=== PATIENT | female | born 1985 | race Caucasian/White ===

== ENCOUNTER 2017-03-08 09:13 | Inpatient (IN) | payer OTHER ==
[2017-03-08 09:47] VITALS: BMI 21.7
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
[2017-03-08] MEDS ORDERED: MAGNESIUM CITRATE 300 ML BOTTLE PO PRN (14:08)
[2017-03-08] MEDS ORDERED: MENTHOL/PHENOL 1 EACH UD MM PRN (14:08)
[2017-03-08] MEDS ORDERED: MAGNESIUM HYDROX 2400MG/30ML ORAL SUSPENSION 30 ML CUP PO PRN (14:08)
[2017-03-08] MEDS ORDERED: guaiFENesin/D-METHORPHAN HB 10 ML UNIT-DOSE CUPS PO PRN (14:08)
[2017-03-08] MEDS ORDERED: hydrOXYzine PAMOATE 50 MG CAPSULE (FP) PO PRN (14:08)
[2017-03-08] MEDS ORDERED: MAG HYDROX/AL HYDROX/SIMETH 30 ML UNIT-DOSE CUP PO PRN (14:08)
[2017-03-08] MEDS ORDERED: diphenhydrAMINE HCL 50 MG CAPSULE PO PRN (14:08)
[2017-03-08] MEDS ORDERED: P-EPHED 60MG/TRIPROLIDI 2.5MG TABLET PO PRN (14:08)
[2017-03-08] MEDS ORDERED: ALBUTEROL SO4 6.7 GM HFA INHALER IH PRN (14:12)
[2017-03-08] MEDS ORDERED: SUMAtriptan SUCCINATE 25 MG TABLET PO PRN (15:00)
[2017-03-08] MEDS ORDERED: METHADONE HCL 10 MG TABLET (FOR DETOX USE ONLY) PO ONE ×2 (15:00→23:00)
[2017-03-08] MEDS: GABAPENTIN 300 MG CAPSULE (FP) PO SCH ×2 (15:06→22:11)
[2017-03-08] MEDS: PHENobarbital 30 MG TABLET PO SCH ×3 (15:06→23:53)
[2017-03-08] MEDS: NICOTINE 21 MG/24 HOURS TOPICAL PATCH TD SCH (15:07)
[2017-03-08 18:34] LABS: URINE APPEARANCE SLCLOUDY; URINE BILIRUBIN NEGATIVE (NEGATIVE); URINE BLOOD NEGATIVE (NEGATIVE); URINE COLOR LTYELLOW; URINE GLUCOSE (UA) NEGATIVE (NEGATIVE); URINE KETONE NEGATIVE (NEGATIVE); URINE LEUK ESTERASE NEGATIVE (NEGATIVE); URINE NITRITE NEGATIVE (NEGATIVE); URINE PROTEIN NEGATIVE (NEGATIVE); URINE UROBILINOGEN NEGATIVE mg/dL (0.2-1.0)
[2017-03-08] MEDS: diazePAM 5 MG TABLET PO PRN (19:18)
[2017-03-08] MEDS: NICOTINE POLACRILEX 2 MG GUM BC PRN (19:42)
[2017-03-08] MEDS ORDERED: ONDANSETRON *ODT* 4 MG TABLET SL ONE (21:32)
[2017-03-08] MEDS: levETIRAcetam 500 MG TABLET (FP) PO SCH (22:10)
[2017-03-08] MEDS: THIAMINE HCL 100 MG TABLET (FP) PO SCH (22:11)
[2017-03-09] MEDS: GABAPENTIN 300 MG CAPSULE (FP) PO SCH ×3 (05:31→22:03)
[2017-03-09] MEDS: PHENobarbital 30 MG TABLET PO SCH ×4 (05:31→23:02)
[2017-03-09] MEDS ORDERED: METHADONE HCL 10 MG TABLET (FOR DETOX USE ONLY) PO ONE (10:00)
[2017-03-09 10:11] LABS: MCH 27.2 pg (25.7-33.7); MCHC 32.5 g/dl (32.0-36.0); MEAN CELL VOLUME 83.7 fl (80-96); MEAN PLT VOLUME 7.6 fl (7.5-11.1); PLATELET COUNT 314 K/MM3 (134-434); RDW 15.1 % (11.6-15.6)
[2017-03-09] MEDS: levETIRAcetam 500 MG TABLET (FP) PO SCH ×2 (10:31→22:05)
[2017-03-09] MEDS: PRENATAL VITAMINS W/ FOLIC ACID TABLET (FP) PO SCH (10:31)
[2017-03-09] MEDS: NICOTINE POLACRILEX 2 MG GUM BC PRN ×3 (10:33→18:33)
[2017-03-09] MEDS: NICOTINE 21 MG/24 HOURS TOPICAL PATCH TD SCH ×2 (10:59→14:31)
[2017-03-09 11:13] LABS: ALBUMIN 3.2 g/dl (3.4-5.0); ALK PHOS 65 U/L (45-117); ANION GAP 6 (8-16); BILIRUBIN,TOTAL 0.4 mg/dL (0.2-1.0); CALCIUM 8.8 mg/dL (8.5-10.1); CO2 32 mmol/L (21-32); CREATININE 0.7 mg/dL (0.55-1.02); GLUCOSE,RANDOM 79 mg/dL (74-106); SGOT/AST 10 U/L (15-37); SGPT/ALT 15 U/L (12-78); TOT PROT 6.7 g/dl (6.4-8.2)
--- NOTE | 2017-03-09 12:27 | PN ---
S COWS - Scale Resting Pulse: 1= [place] 81-100 Sweatin=Flushed/Facial Moisture Restless Observation: 1= Difficult to Sit Still Pupil Size: 0= Normal to Room Light Bone or Joint Aches: 2= Severe Diffuse Aches Runny Nose/ Eye Tearin= Nasal Congestion GI Upset > 30mins: 0= None Tremor Observation of Outstretched Hands: 2= Slight Tremor Visible Yawning Observation: 2= >3x During Session Anxiety or Irritability: 2=Irritable/Anxious Goose Flesh Skin: 3=Piloerection COWS Score: 16 BHS Progress Note (SOAP) Subjective: irritable agitation sweats interrupted sleep body aches Objective: 03/09/17 12:25 Vital Signs Temperature 98.2 F 03/09/17 11:16 Pulse Rate 90 03/09/17 11:16 Respiratory Rate 18 03/09/17 11:16 Blood Pressure 99/62 03/09/17 11:16 O2 Sat by Pulse Oximetry (%) Laboratory Tests 03/08/17 03/09/17 03/09/17 15:55 07:00 07:00 WBC 5.0 RBC 4.13 Hgb 11.2 Hct 34.5 MCV 83.7 MCH 27.2 MCHC 32.5 RDW 15.1 Plt Count 314 MPV 7.6 Sodium 141 Potassium 4.3 Chloride 103 Carbon Dioxide 32 Anion Gap 6 L BUN 12 Creatinine 0.7 Creat Clearance w eGFR > 60 Random Glucose 79 Calcium 8.8 Total Bilirubin 0.4 AST 10 L ALT 15 Alkaline Phosphatase 65 Total Protein 6.7 Albumin 3.2 L Urine Color Ltyellow Urine Appearance Slcloudy Urine pH 6.0 Ur Specific [place] 1.020 Urine Protein Negative Urine Glucose (UA) Negative Urine Ketones Negative Urine Blood Negative Urine Nitrite Negative Urine Bilirubin Negative Urine Urobilinogen Negative Ur Leukocyte Esterase Negative RPR Titer 03/09/17 07:00 WBC RBC Hgb Hct MCV MCH MCHC RDW Plt Count MPV Sodium Potassium Chloride Carbon Dioxide Anion Gap BUN Creatinine Creat Clearance w eGFR Random Glucose Calcium Total Bilirubin AST ALT Alkaline Phosphatase Total Protein Albumin Urine Color Urine Appearance Urine pH Ur Specific [place] Urine Protein Urine Glucose (UA) Urine Ketones Urine Blood Urine Nitrite Urine Bilirubin Urine Urobilinogen Ur Leukocyte Esterase RPR Titer Nonreactive awake/alert ambulating no acute distress Assessment: 03/09/17 12:26 withdrawal sx Plan: continue detox increase fluids
[2017-03-09] MEDS: diazePAM 5 MG TABLET PO PRN ×3 (13:10→22:04)
[2017-03-09] MEDS: LACOSAMIDE 50 MG TABLET PO SCH ×2 (14:28→22:05)
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
[2017-03-09] MEDS ORDERED: ONDANSETRON *ODT* 4 MG TABLET SL ONE (18:24)
--- NOTE | 2017-03-09 18:34 | EKG ---
Test Reason : Blood Pressure : / mmHG Vent. Rate : 084 BPM Atrial Rate : 084 BPM P-R Int : 182 ms QRS Dur : 096 ms QT Int : 392 ms P-R-T Axes : 056 089 050 degrees QTc Int : 463 ms NORMAL SINUS RHYTHM T WAVE INVERSIONS IN RIGHT PRECORDIAL LEADS PROLONGED QT ABNORMAL ECG NO PREVIOUS ECGS AVAILABLE REPEAT EKG IF CLINICALLY INDICATED Confirmed by OWEN MCRAE MD ([id number]) on 03/09/2017 6:33:45 PM Referred By: Confirmed By:OWEN MCRAE MD
[2017-03-09] MEDS ORDERED: QUEtiapine FUMARATE 100 MG TABLET (FP) PO SCH (22:00)
[2017-03-09] MEDS: THIAMINE HCL 100 MG TABLET (FP) PO SCH (22:03)
[2017-03-09] MEDS: QUEtiapine FUMARATE 100 MG TABLET (FP) PO SCH (22:04)
[2017-03-10] MEDS: PHENobarbital 30 MG TABLET PO SCH ×4 (06:21→23:50)
[2017-03-10] MEDS: GABAPENTIN 300 MG CAPSULE (FP) PO SCH ×3 (06:22→22:08)
[2017-03-10] MEDS ORDERED: METHADONE HCL 5 MG TABLET (FOR DETOX USE ONLY) PO ONE (10:00)
--- NOTE | 2017-03-10 10:14 | PN ---
S COWS - Scale Resting Pulse: 0= [place] 80 or Below Sweatin= Chills/Flushing Restless Observation: 0= Sits Still Pupil Size: 0= Normal to Room Light Bone or Joint Aches: 2= Severe Diffuse Aches Runny Nose/ Eye Tearin= Nasal Congestion GI Upset > 30mins: 0= None Tremor Observation of Outstretched Hands: 2= Slight Tremor Visible Yawning Observation: 2= >3x During Session Anxiety or Irritability: 2=Irritable/Anxious Goose Flesh Skin: 3=Piloerection COWS Score: 13 BHS Progress Note (SOAP) Subjective: sleepy sweats tired interrupted sleep Objective: 03/10/17 10:13 Vital Signs Temperature 97.8 F 03/10/17 05:58 Pulse Rate 77 03/10/17 05:58 Respiratory Rate 16 03/10/17 05:58 Blood Pressure 80/60 03/10/17 05:58 O2 Sat by Pulse Oximetry (%) Laboratory Tests 03/08/17 03/09/17 03/09/17 15:55 07:00 07:00 WBC 5.0 RBC 4.13 Hgb 11.2 Hct 34.5 MCV 83.7 MCH 27.2 MCHC 32.5 RDW 15.1 Plt Count 314 MPV 7.6 Sodium 141 Potassium 4.3 Chloride 103 Carbon Dioxide 32 Anion Gap 6 L BUN 12 Creatinine 0.7 Creat Clearance w eGFR > 60 Random Glucose 79 Calcium 8.8 Total Bilirubin 0.4 AST 10 L ALT 15 Alkaline Phosphatase 65 Total Protein 6.7 Albumin 3.2 L Urine Color Ltyellow Urine Appearance Slcloudy Urine pH 6.0 Ur Specific [place] 1.020 Urine Protein Negative Urine Glucose (UA) Negative Urine Ketones Negative Urine Blood Negative Urine Nitrite Negative Urine Bilirubin Negative Urine Urobilinogen Negative Ur Leukocyte Esterase Negative RPR Titer 03/09/17 07:00 WBC RBC Hgb Hct MCV MCH MCHC RDW Plt Count MPV Sodium Potassium Chloride Carbon Dioxide Anion Gap BUN Creatinine Creat Clearance w eGFR Random Glucose Calcium Total Bilirubin AST ALT Alkaline Phosphatase Total Protein Albumin Urine Color Urine Appearance Urine pH Ur Specific [place] Urine Protein Urine Glucose (UA) Urine Ketones Urine Blood Urine Nitrite Urine Bilirubin Urine Urobilinogen Ur Leukocyte Esterase RPR Titer Nonreactive awake/alert ambulating no acute distress Assessment: 03/10/17 10:14 withdrawal sx Plan: continue detox increase fluids
[2017-03-10] MEDS: levETIRAcetam 500 MG TABLET (FP) PO SCH ×2 (10:37→22:07)
[2017-03-10] MEDS: PRENATAL VITAMINS W/ FOLIC ACID TABLET (FP) PO SCH (10:37)
[2017-03-10] MEDS: LACOSAMIDE 50 MG TABLET PO SCH ×2 (10:37→22:08)
[2017-03-10] MEDS: NICOTINE 21 MG/24 HOURS TOPICAL PATCH TD SCH (10:39)
[2017-03-10] MEDS: LOPERAMIDE HCL 2 MG CAPSULE PO PRN ×2 (11:24→18:38)
[2017-03-10] MEDS: diazePAM 5 MG TABLET PO PRN ×3 (12:06→20:50)
[2017-03-10] MEDS: NICOTINE POLACRILEX 2 MG GUM BC PRN ×3 (12:06→18:38)
[2017-03-10] MEDS: THIAMINE HCL 100 MG TABLET (FP) PO SCH (22:07)
[2017-03-10] MEDS: QUEtiapine FUMARATE 100 MG TABLET (FP) PO SCH (22:08)
[2017-03-11] MEDS: PHENobarbital 30 MG TABLET PO SCH ×4 (07:19→23:15)
[2017-03-11] MEDS: GABAPENTIN 300 MG CAPSULE (FP) PO SCH ×3 (07:19→22:06)
--- NOTE | 2017-03-11 09:52 | PN ---
Psychiatric Progress Note Vital Signs: Vital Signs Period Temp Pulse Resp BP Sys/Bowman Pulse Ox Last 24 Hr 98 F-99.5 F 83-106 16-20 101-121/58-90 Date of Session: 03/11/17 Chief Complaint:: My meidcations HPI: Patient reports taking prior to admission: Wellbutrin XR 150mg poqd. Zoloft 25mg poqd Current Medications: Active Medications Generic Name Dose Route Start Last Admin Trade Name Freq PRN Reason Stop Dose Admin Acetaminophen 650 mg 03/08/17 14:08 Tylenol - PO Q4H PRN FEVER OR PAIN Al Hydroxide/Mg Hydroxide 30 ml 03/08/17 14:08 Mylanta Oral Suspension - PO Q6H PRN DYSPEPSIA Albuterol Sulfate 2 puff 03/08/17 14:12 Ventolin Hfa Inhaler - IH Q4H PRN SHORT OF BREATH/WHEEZING Diazepam 10 mg 03/08/17 14:08 03/10/17 20:50 Valium - PO 03/11/17 14:07 10 mg Q4H PRN Administration WITHDRAWAL(CONT SUBST) Diphenhydramine HCl 50 mg 03/08/17 14:08 Benadryl - PO HSMR1 PRN INSOMNIA Eucalyptus/Menthol/Phenol/Sorbitol 1 each 03/08/17 14:08 Cepastat Lozenge - MM Q4H PRN SORE THROAT Gabapentin 300 mg 03/08/17 15:00 03/11/17 07:19 Neurontin - PO 300 mg TID NIDA Administration Guaifenesin 10 ml 03/08/17 14:08 Robitussin Dm - PO Q6H PRN COUGH Lacosamide 100 mg 03/09/17 13:15 03/10/17 22:08 Vimpat - PO 03/16/17 13:14 100 mg BID NIDA Administration Levetiracetam 1,500 mg 03/08/17 22:00 03/10/17 22:07 Keppra - PO 1,500 mg BID NIDA Administration Loperamide HCl 4 mg 03/08/17 14:08 03/10/17 18:38 Imodium - PO 4 mg Q6H PRN Administration DIARRHEA Magnesium Citrate 300 ml 03/08/17 14:08 Citroma - PO Q48H PRN CONSTIPATION Magnesium Hydroxide 30 ml 03/08/17 14:08 Milk Of Magnesia - PO DAILY PRN CONSTIPATION Methadone HCl 10 mg 03/12/17 10:00 Dolophine - PO 03/12/17 10:01 ONCE ONE Methadone HCl 15 mg 03/11/17 10:00 Dolophine - PO 03/11/17 10:01 ONCE ONE Methadone HCl 5 mg 03/13/17 06:00 Dolophine - PO 03/13/17 06:01 ONCE@0600 ONE Nicotine 21 mg 03/08/17 15:00 03/10/17 10:39 Nicoderm Patch - TD 21 mg DAILY NIDA Administration Nicotine Polacrilex 2 mg 03/08/17 14:08 03/10/17 18:38 Nicorette Gum - BC 2 mg Q2H PRN Administration NICOTINE REPLACEMENT RX Phenobarbital 30 mg 03/08/17 15:00 03/11/17 07:19 Phenobarbital - PO 03/15/17 14:59 30 mg Q6HPO NIDA Administration Multivit/Folic Acid/Iron 1 tab 03/09/17 10:00 03/10/17 10:37 Vitamins (Sjr) - PO 1 tab DAILY NIDA Administration Pseudoephedrine/Triprolidine 1 combo 03/08/17 14:08 Actifed - PO TID PRN NASAL CONGESTION Quetiapine Fumarate 100 mg 03/09/17 22:00 03/10/17 22:08 Seroquel - PO 100 mg HS NIDA Administration Sumatriptan Succinate 25 mg 03/08/17 15:00 Imitrex - PO ONCE PRN PAIN LEVEL 6-10 Thiamine HCl 100 mg 03/08/17 22:00 03/10/17 22:07 Vitamin B1 - PO 100 mg HS NIDA Administration Medication(s) Change(s): Wellbutrin XR 150mg poqd. Zoloft 25mg poqd Mental Status Exam - Mental Status Exam Alert and Oriented to: Person Cognitive Function: Fair Patient Appearance: Well Groomed Mood: Anxious Affect: Appropriate, Mood Congruent Patient Behavior: Cooperative Speech Pattern: Excessive Thought Process: Goal Oriented Thought Disorder: Being Controlled Hallucinations: Denies Suicidal Ideation: Denies Homicidal Ideation: Denies Insight/Judgement: Fair Sleep: Difficulty falling asleep Appetite: Weight loss Muscle strength/Tone: Normal Gait/Station: Normal Additional Comments: Wellbutrin XR 150mg poqd. Zoloft 25mg poqd
[2017-03-11] MEDS ORDERED: METHADONE HCL 5 MG TABLET (FOR DETOX USE ONLY) PO ONE (10:00)
[2017-03-11] MEDS: LACOSAMIDE 50 MG TABLET PO SCH ×2 (10:46→22:57)
[2017-03-11] MEDS: levETIRAcetam 500 MG TABLET (FP) PO SCH ×2 (10:46→22:05)
[2017-03-11] MEDS: PRENATAL VITAMINS W/ FOLIC ACID TABLET (FP) PO SCH (10:47)
[2017-03-11] MEDS: NICOTINE 21 MG/24 HOURS TOPICAL PATCH TD SCH (10:48)
[2017-03-11] MEDS: NICOTINE POLACRILEX 2 MG GUM BC PRN ×3 (10:50→23:20)
[2017-03-11] MEDS: SERTRALINE HCL 25 MG TABLET (FP) PO SCH (11:59)
[2017-03-11] MEDS: diazePAM 5 MG TABLET PO PRN ×3 (11:59→22:05)
--- NOTE | 2017-03-11 12:04 | PN ---
[facility] Progress Note (SOAP) Subjective: nasuea, sweats, interrupted sleep, anxiety, tremors Objective: 03/11/17 12:04 Vital Signs - 24 hr 03/10/17 03/10/17 03/10/17 14:49 17:45 22:09 Temperature 98.2 F 99.5 F 98.1 F Pulse Rate 104 H 103 H 106 H Respiratory 18 20 18 Rate Blood Pressure 114/74 121/90 117/75 03/11/17 03/11/17 03/11/17 00:30 06:49 10:15 Temperature 98 F 98.1 F Pulse Rate 83 86 Respiratory 18 18 16 Rate Blood Pressure 101/58 106/67 Laboratory Tests 03/08/17 03/09/17 03/09/17 15:55 07:00 07:00 WBC 5.0 RBC 4.13 Hgb 11.2 Hct 34.5 MCV 83.7 MCH 27.2 MCHC 32.5 RDW 15.1 Plt Count 314 MPV 7.6 Sodium 141 Potassium 4.3 Chloride 103 Carbon Dioxide 32 Anion Gap 6 L BUN 12 Creatinine 0.7 Creat Clearance w eGFR > 60 Random Glucose 79 Calcium 8.8 Total Bilirubin 0.4 AST 10 L ALT 15 Alkaline Phosphatase 65 Total Protein 6.7 Albumin 3.2 L Urine Color Ltyellow Urine Appearance Slcloudy Urine pH 6.0 Ur Specific [place] 1.020 Urine Protein Negative Urine Glucose (UA) Negative Urine Ketones Negative Urine Blood Negative Urine Nitrite Negative Urine Bilirubin Negative Urine Urobilinogen Negative Ur Leukocyte Esterase Negative RPR Titer 03/09/17 07:00 WBC RBC Hgb Hct MCV MCH MCHC RDW Plt Count MPV Sodium Potassium Chloride Carbon Dioxide Anion Gap BUN Creatinine Creat Clearance w eGFR Random Glucose Calcium Total Bilirubin AST ALT Alkaline Phosphatase Total Protein Albumin Urine Color Urine Appearance Urine pH Ur Specific [place] Urine Protein Urine Glucose (UA) Urine Ketones Urine Blood Urine Nitrite Urine Bilirubin Urine Urobilinogen Ur Leukocyte Esterase RPR Titer Nonreactive Assessment: 03/11/17 12:04 withdrawal sx Plan: cont detox, fluids
[2017-03-11] MEDS: ACETAMINOPHEN 325 MG TABLET (FP) PO PRN ×2 (12:49→23:20)
[2017-03-11] MEDS: BACITRACIN 0.9 GM PACKET TP SCH (22:06)
[2017-03-11] MEDS: QUEtiapine FUMARATE 100 MG TABLET (FP) PO SCH (22:06)
[2017-03-11] MEDS: THIAMINE HCL 100 MG TABLET (FP) PO SCH (23:06)
[2017-03-12] MEDS: GABAPENTIN 300 MG CAPSULE (FP) PO SCH (05:21)
[2017-03-12] MEDS: diazePAM 5 MG TABLET PO PRN (05:23)
[2017-03-12] MEDS: PHENobarbital 30 MG TABLET PO SCH (06:01)
--- NOTE | 2017-03-12 09:02 | DS ---
[facility] Detox Discharge Summary Admission Date: 03/08/17 - History Present History: Cannabis Dependence, Cocaine Dependence, Opioid Dependence Pertinent Past History: seizures, elevated cholesterol, nicotine dependence, insomnia, anxiety, depression - Physical Exam Results Vital Signs: Vital Signs Temperature 97.9 F 03/12/17 06:54 Pulse Rate 78 03/12/17 06:54 Respiratory Rate 18 03/12/17 06:54 Blood Pressure 101/52 03/12/17 06:54 O2 Sat by Pulse Oximetry (%) Laboratory Tests 03/08/17 03/09/17 03/09/17 15:55 07:00 07:00 WBC 5.0 RBC 4.13 Hgb 11.2 Hct 34.5 MCV 83.7 MCH 27.2 MCHC 32.5 RDW 15.1 Plt Count 314 MPV 7.6 Sodium 141 Potassium 4.3 Chloride 103 Carbon Dioxide 32 Anion Gap 6 L BUN 12 Creatinine 0.7 Creat Clearance w eGFR > 60 Random Glucose 79 Calcium 8.8 Total Bilirubin 0.4 AST 10 L ALT 15 Alkaline Phosphatase 65 Total Protein 6.7 Albumin 3.2 L Urine Color Ltyellow Urine Appearance Slcloudy Urine pH 6.0 Ur Specific [place] 1.020 Urine Protein Negative Urine Glucose (UA) Negative Urine Ketones Negative Urine Blood Negative Urine Nitrite Negative Urine Bilirubin Negative Urine Urobilinogen Negative Ur Leukocyte Esterase Negative RPR Titer 03/09/17 07:00 WBC RBC Hgb Hct MCV MCH MCHC RDW Plt Count MPV Sodium Potassium Chloride Carbon Dioxide Anion Gap BUN Creatinine Creat Clearance w eGFR Random Glucose Calcium Total Bilirubin AST ALT Alkaline Phosphatase Total Protein Albumin Urine Color Urine Appearance Urine pH Ur Specific [place] Urine Protein Urine Glucose (UA) Urine Ketones Urine Blood Urine Nitrite Urine Bilirubin Urine Urobilinogen Ur Leukocyte Esterase RPR Titer Nonreactive Pertinent Admission Physical Exam Findings: withdrawal sx - Treatment Hospital Course: Detox Protocol Followed, Detoxed Safely, Responded well, Discharged Condition Good, Rehab Referral Accepted Patient has Accepted a Rehab Referral to: Yes - Medication Discharge Medications: Ambulatory Orders Gabapentin [Neurontin -] 300 mg PO Q8H 03/08/17 Lacosamide [Vimpat -] 100 mg PO BID 03/08/17 Levetiracetam [Keppra -] 1,500 mg PO BID 03/08/17 Phenobarbital - 32.4 mg PO Q6H 03/08/17 Quetiapine Fumarate [Seroquel -] 100 mg PO HS 03/08/17 Sumatriptan Succinate [Imitrex -] 25 mg PO ONCE PRN 03/08/17 Bupropion HCl [Wellbutrin Xl -] 150 mg PO DAILY #30 tab 03/11/17 Sertraline HCl [Zoloft -] 25 mg PO DAILY #30 tablet 03/11/17 - Diagnosis (1) Asthma Current Visit: Yes Status: Chronic Qualifiers: Asthma severity: mild intermittent Asthma complication type: uncomplicated Qualified Code(s): J45.20 - Mild intermittent asthma, uncomplicated (2) Cannabis dependence, uncomplicated Current Visit: Yes Status: Chronic (3) Cocaine dependence, uncomplicated Current Visit: Yes Status: Chronic (4) History of iron deficiency anemia Current Visit: Yes Status: Chronic (5) History of traumatic brain injury Current Visit: Yes Status: Chronic (6) Hypercholesterolemia Current Visit: Yes Status: Chronic (7) Nicotine dependence Current Visit: Yes Status: Chronic Qualifiers: Nicotine product type: cigarettes Substance use status: uncomplicated Qualified Code(s): F17.210 - Nicotine dependence, cigarettes, uncomplicated (8) Opioid dependence with withdrawal Current Visit: Yes Status: Chronic - AMA Did Patient Leave Against Medical Advice: No
[2017-03-12] MEDS ORDERED: METHADONE HCL 10 MG TABLET (FOR DETOX USE ONLY) PO ONE (10:00)
[2017-03-12 10:08] VITALS: BP 143/71; PULSE 111; TEMP 98.6
[2017-03-12] MEDS: BACITRACIN 0.9 GM PACKET TP SCH (10:26)
[2017-03-12] MEDS: PRENATAL VITAMINS W/ FOLIC ACID TABLET (FP) PO SCH (10:27)
[2017-03-12] MEDS: levETIRAcetam 500 MG TABLET (FP) PO SCH (10:27)
[2017-03-12] MEDS: LACOSAMIDE 50 MG TABLET PO SCH (10:27)
[2017-03-12] MEDS: NICOTINE 21 MG/24 HOURS TOPICAL PATCH TD SCH (10:27)
[2017-03-12] MEDS: SERTRALINE HCL 25 MG TABLET (FP) PO SCH (10:28)
[2017-03-13] MEDS ORDERED: METHADONE HCL 5 MG TABLET (FOR DETOX USE ONLY) PO ONE (06:00)
== END 2017-03-12 10:39 | disposition home or self-care (01) | DRG 773 ==
LOC: YASAS 09:13 → Y6N 13:24
PROVIDERS: ADMIT Internal Medicine Addiction Medicine; ATTEND Internal Medicine Addiction Medicine
PROC: HZ2ZZZZ Detoxification Services for Substance Abuse Treatment (ICD-10-PCS; principal; 2017-03-08)
DX: F11.23 Opioid dependence with withdrawal (principal); F14.20 Cocaine dependence, uncomplicated; F12.20 Cannabis dependence, uncomplicated; F17.210 Nicotine dependence, cigarettes, uncomplicated; J45.20 Mild intermittent asthma, uncomplicated; E78.00 Pure hypercholesterolemia, unspecified; G40.909 Epilepsy, unspecified, not intractable, without status epilepticus; G47.00 Insomnia, unspecified; Z86.2 Personal history of diseases of the blood and blood-forming organs and certain disorders involving the immune mechanism; Z87.820 Personal history of traumatic brain injury; Z91.5 Personal history of self-harm
CPT/HCPCS: 36415; 80053; 80307; 81003; 85027; 86593; 93005; 93010

== ENCOUNTER 2018-08-31 14:31 | Inpatient (IN) | payer OTHER ==
[2018-08-31 17:05] VITALS: BMI 21.2
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
[2018-08-31] MEDS ORDERED: ALBUTEROL SO4 8 GM HFA INHALER IH PRN (19:04)
[2018-08-31] MEDS ORDERED: MAGNESIUM CITRATE 300 ML BOTTLE PO PRN (19:06)
[2018-08-31] MEDS ORDERED: LOPERAMIDE HCL 2 MG CAPSULE PO PRN (19:06)
[2018-08-31] MEDS ORDERED: MENTHOL/PHENOL 1 EACH UD MM PRN (19:06)
[2018-08-31] MEDS ORDERED: MAGNESIUM HYDROX 2400MG/30ML ORAL SUSPENSION 30 ML CUP PO PRN (19:06)
[2018-08-31] MEDS ORDERED: P-EPHED 60MG/TRIPROLIDI 2.5MG TABLET PO PRN (19:06)
[2018-08-31] MEDS ORDERED: guaiFENesin/D-METHORPHAN HB 10 ML UNIT-DOSE CUPS PO PRN (19:06)
[2018-08-31] MEDS ORDERED: MAG HYDROX/AL HYDROX/SIMETH 30 ML UNIT-DOSE CUP PO PRN (19:06)
[2018-08-31] MEDS ORDERED: METHADONE HCL 10 MG TABLET (FOR DETOX USE ONLY) PO ONE ×2 (19:45→23:00)
[2018-08-31] MEDS ORDERED: diazePAM 5 MG TABLET PO ONE (19:45)
[2018-08-31] MEDS ORDERED: MELATONIN 5 MG TABLETS PO PRN (22:00)
[2018-08-31] MEDS ORDERED: PHENobarbital 30 MG TABLET PO SCH ×2 (22:00)
[2018-08-31] MEDS: THIAMINE HCL 100 MG TABLET (FP) PO SCH (22:18)
[2018-08-31] MEDS: PHENobarbital 30 MG TABLET PO SCH (22:19)
[2018-08-31] MEDS: levETIRAcetam 500 MG TABLET (FP) PO SCH (22:19)
[2018-08-31] MEDS: NICOTINE POLACRILEX 2 MG GUM BC PRN (22:21)
[2018-08-31] MEDS: diazePAM 5 MG TABLET PO SCH (22:50)
[2018-08-31 23:26] LABS: URINE APPEARANCE CLOUDY; URINE BILIRUBIN NEGATIVE (<2.0 mg/dL); URINE COLOR DKYELLOW; URINE GLUCOSE (UA) NEGATIVE (NEGATIVE); URINE KETONE NEGATIVE (NEGATIVE); URINE LEUK ESTERASE 3+ (NEGATIVE); URINE NITRITE NEGATIVE (NEGATIVE); URINE PROTEIN 2+ (NEGATIVE)
[2018-08-31 23:31] LABS: EPI CELLS MANY /HPF (FEW); URINE BACTERIA RARE /hpf (NONE SEEN); URINE MUCUS MODERATE
[2018-09-01] MEDS: PHENobarbital 30 MG TABLET PO SCH ×3 (05:48→22:33)
[2018-09-01] MEDS: diazePAM 5 MG TABLET PO SCH ×3 (05:48→22:32)
[2018-09-01] MEDS: ACETAMINOPHEN 325 MG TABLET (FP) PO PRN ×2 (05:49→10:22)
[2018-09-01] MEDS: NICOTINE POLACRILEX 2 MG GUM BC PRN ×3 (05:49→17:42)
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
[2018-09-01] MEDS ORDERED: METHADONE HCL 10 MG TABLET (FOR DETOX USE ONLY) PO SCH (10:00)
[2018-09-01] MEDS: NICOTINE 21 MG/24 HOURS TOPICAL PATCH TD SCH (10:20)
[2018-09-01] MEDS: levETIRAcetam 500 MG TABLET (FP) PO SCH ×2 (10:20→22:33)
[2018-09-01] MEDS: PANTOPRAZOLE 40 MG TABLET (FP) PO SCH (10:20)
[2018-09-01] MEDS: PRENATAL VITAMINS W/ FOLIC ACID TABLET (FP) PO SCH (10:20)
[2018-09-01] MEDS: diazePAM 5 MG TABLET PO PRN ×2 (10:21→17:39)
[2018-09-01] MEDS: FLUoxetine HCL 20 MG CAPSULE (FP) PO SCH (10:21)
[2018-09-01 10:37] LABS: ALBUMIN 3.5 g/dl (3.4-5.0); ALK PHOS 53 U/L (45-117); ANION GAP 7 MMOL/L (8-16); BILIRUBIN,TOTAL 0.2 mg/dL (0.2-1); BLOOD UREA NITROGEN 15 mg/dL (7-18); CHLORIDE 101 mmol/L (98-107); CO2 28 mmol/L (21-32); CREATININE 0.9 mg/dL (0.55-1.3); GLUCOSE,RANDOM 88 mg/dL (74-106); HEMATOCRIT 32.3 % (32.4-45.2); HEMOGLOBIN 10.6 GM/dL (10.7-15.3); MCH 25.1 pg (25.7-33.7); MCHC 32.7 g/dl (32.0-36.0); MEAN CELL VOLUME 76.9 fl (80-96); MEAN PLT VOLUME 7.9 fl (7.5-11.1); PLATELET COUNT 277 K/MM3 (134-434); POTASSIUM 4.2 mmol/L (3.5-5.1); RDW 19.9 % (11.6-15.6); SGOT/AST 10 U/L (15-37); SGPT/ALT 12 U/L (13-61); SODIUM 135 mmol/L (136-145); TOT PROT 7.5 g/dl (6.4-8.2); WHITE BLOOD COUNT 5.3 K/mm3 (4.0-10.0)
[2018-09-01] MEDS: TRIMETHOBENZAMIDE HCL 300 MG CAPSULE PO PRN (12:12)
[2018-09-01] MEDS: BACLOFEN 10 MG TABLET (FP) PO PRN (12:12)
--- NOTE | 2018-09-01 16:36 | PN ---
S CIWA - CIWA Score Nausea/Vomitin Muscle Tremors: None Anxiety: 4-Mod. Anxious/Guarded Agitation: 0-Normal Activity Paroxysmal Sweats: 3 Orientation: 0-Oriented Tacttile Disturbances: 0-None Auditory Disturbances: 0-None Visual Disturbances: 3-Moderate Sensitivity Headache: 3-Moderate CIWA-Ar Total Score: 16 BHS COWS - Scale Resting Pulse: 1= [place] [id number] Sweatin= Chills/Flushing Restless Observation: 0= Sits Still Pupil Size: 0= Normal to Room Light Bone or Joint Aches: 2= Severe Diffuse Aches Runny Nose/ Eye Tearin= None GI Upset > 30mins: 2= Nausea/Diarrhea Tremor Observation of Outstretched Hands: 0= None Yawning Observation: 1= 1-2x During Session Anxiety or Irritability: 2=Irritable/Anxious Goose Flesh Skin: 3=Piloerection COWS Score: 12 BHS Progress Note (SOAP) Subjective: Sweating, Nausea, Interrupted Sleep, H/A, Constipation. Objective: PATIENT A & O X 3. IN NO ACUTE DISTRESS. 09/01/18 16:34 Vital Signs Temperature 99.1 F 09/01/18 13:25 Pulse Rate 90 09/01/18 13:25 Respiratory Rate 18 09/01/18 13:25 Blood Pressure 120/81 09/01/18 13:25 O2 Sat by Pulse Oximetry (%) Laboratory Tests 08/31/18 09/01/18 09/01/18 23:20 07:00 07:00 WBC 5.3 RBC 4.20 Hgb 10.6 L Hct 32.3 L MCV 76.9 L MCH 25.1 L MCHC 32.7 RDW 19.9 H Plt Count 277 MPV 7.9 Sodium 135 L Potassium 4.2 Chloride 101 Carbon Dioxide 28 Anion Gap 7 L BUN 15 Creatinine 0.9 Creat Clearance w eGFR > 60 Random Glucose 88 Calcium 9.0 Total Bilirubin 0.2 AST 10 L ALT 12 L Alkaline Phosphatase 53 Total Protein 7.5 Albumin 3.5 Urine Color Dkyellow Urine Appearance Cloudy Urine pH 8.0 D Ur Specific [place] 1.024 Urine Protein 2+ H Urine Glucose (UA) Negative Urine Ketones Negative Urine Blood Negative Urine Nitrite Negative Urine Bilirubin Negative Urine Urobilinogen 2.0 H Ur Leukocyte Esterase 3+ H Urine WBC (Auto) 14 Urine RBC (Auto) 6 Ur Epithelial Cells Many Urine Bacteria Rare Urine Mucus Moderate RPR Titer 09/01/18 07:00 WBC RBC Hgb Hct MCV MCH MCHC RDW Plt Count MPV Sodium Potassium Chloride Carbon Dioxide Anion Gap BUN Creatinine Creat Clearance w eGFR Random Glucose Calcium Total Bilirubin AST ALT Alkaline Phosphatase Total Protein Albumin Urine Color Urine Appearance Urine pH Ur Specific [place] Urine Protein Urine Glucose (UA) Urine Ketones Urine Blood Urine Nitrite Urine Bilirubin Urine Urobilinogen Ur Leukocyte Esterase Urine WBC (Auto) Urine RBC (Auto) Ur Epithelial Cells Urine Bacteria Urine Mucus RPR Titer Nonreactive LABS NOTED. PATIENT REPORTED HISTORY OF IRON-DEFICIENCY TYPE ANEMIA ON ADMISSION. LEVETIRACETAM LEVEL RESULT PENDING. 09/01/18 16:38 Assessment: 09/01/18 16:35 WITHDRAWAL SYMPTOMS. ANEMIA. 09/01/18 16:38 Plan: CONTINUE DETOX. INCREASE DAILY PO FLUID INTAKE. FEOSOL, 325 MG PO TIDCM FOR (MICROCYTIC) ANEMIA. REPEAT CBC ON 09/03/2018 TO SEE IF ANY CHANGE IN ANEMIA NOTED ON ADMISSION. PRN BACLOFEN PO FOR MUSCLE SPASMS. TIGAN PO PRN FOR NAUSEA.
--- NOTE | 2018-09-01 16:58 | EKG ---
Test Reason : Blood Pressure : / mmHG Vent. Rate : 095 BPM Atrial Rate : 095 BPM P-R Int : 152 ms QRS Dur : 090 ms QT Int : 384 ms P-R-T Axes : 064 081 059 degrees QTc Int : 482 ms NORMAL SINUS RHYTHM PROLONGED QT ABNORMAL ECG WHEN COMPARED WITH ECG OF 08-MAR-2017 13:46, T WAVE INVERSION NO LONGER EVIDENT IN ANTERIOR LEADS Confirmed by JENIFFER DUNCAN, LESTER ([id number]) on 09/01/2018 4:58:10 PM Referred By: Confirmed By:LESTER SWIFT MD
--- NOTE | 2018-09-01 16:58 | EKG ---
Test Reason : Blood Pressure : / mmHG Vent. Rate : 065 BPM Atrial Rate : 065 BPM P-R Int : 186 ms QRS Dur : 092 ms QT Int : 432 ms P-R-T Axes : 053 084 050 degrees QTc Int : 449 ms NORMAL SINUS RHYTHM NORMAL ECG WHEN COMPARED WITH ECG OF 31-AUG-2018 21:01, NO SIGNIFICANT CHANGE WAS FOUND Confirmed by LESTER SWIFT MD ([id number]) on 09/01/2018 4:58:02 PM Referred By: MITCH WELLS Confirmed By:LESTER SWIFT MD
[2018-09-01] MEDS: FERROUS SO4 325 MG TABLET (FP) PO SCH (17:40)
[2018-09-01] MEDS: THIAMINE HCL 100 MG TABLET (FP) PO SCH (22:32)
[2018-09-01] MEDS: QUEtiapine FUMARATE 100 MG TABLET (FP) PO SCH (22:33)
[2018-09-02] MEDS: PHENobarbital 30 MG TABLET PO SCH ×3 (05:31→22:13)
[2018-09-02] MEDS: diazePAM 5 MG TABLET PO PRN ×4 (05:33→21:11)
[2018-09-02] MEDS: FERROUS SO4 325 MG TABLET (FP) PO SCH ×3 (07:46→16:51)
[2018-09-02 09:27] LABS: URINE APPEARANCE CLEAR; URINE BILIRUBIN NEGATIVE (<2.0 mg/dL); URINE COLOR LTYELLOW; URINE GLUCOSE (UA) NEGATIVE (NEGATIVE); URINE KETONE NEGATIVE (NEGATIVE); URINE LEUK ESTERASE TRACE (NEGATIVE); URINE NITRITE NEGATIVE (NEGATIVE); URINE PROTEIN NEGATIVE (NEGATIVE); URINE UROBILINOGEN NEGATIVE mg/dL (0.2-1.0)
[2018-09-02 10:02] LABS: EPI CELLS RARE /HPF (FEW)
[2018-09-02] MEDS: diazePAM 5 MG TABLET PO SCH ×2 (10:22→22:41)
[2018-09-02] MEDS: PANTOPRAZOLE 40 MG TABLET (FP) PO SCH (10:22)
[2018-09-02] MEDS: levETIRAcetam 500 MG TABLET (FP) PO SCH ×2 (10:22→22:13)
[2018-09-02] MEDS: METHADONE HCL 5 MG TABLET (FOR DETOX USE ONLY) PO SCH (10:22)
[2018-09-02] MEDS: FLUoxetine HCL 20 MG CAPSULE (FP) PO SCH (10:22)
[2018-09-02] MEDS: PRENATAL VITAMINS W/ FOLIC ACID TABLET (FP) PO SCH (10:22)
[2018-09-02] MEDS: NICOTINE 21 MG/24 HOURS TOPICAL PATCH TD SCH (10:22)
[2018-09-02] MEDS: ACETAMINOPHEN 325 MG TABLET (FP) PO PRN (10:23)
[2018-09-02] MEDS: NICOTINE POLACRILEX 2 MG GUM BC PRN ×3 (10:23→22:14)
[2018-09-02] MEDS: TRIMETHOBENZAMIDE HCL 300 MG CAPSULE PO PRN (12:04)
--- NOTE | 2018-09-02 15:43 | PN ---
S CIWA - CIWA Score Nausea/Vomitin Muscle Tremors: None Anxiety: 4-Mod. Anxious/Guarded Agitation: 3 Paroxysmal Sweats: 3 Orientation: 0-Oriented Tacttile Disturbances: 0-None Auditory Disturbances: 2-Mild Harshness/Frighten Visual Disturbances: 2-Mild Sensitivity Headache: 0-None Present CIWA-Ar Total Score: 17 BHS COWS - Scale Resting Pulse: 1= [place] 81-100 Sweatin= Chills/Flushing Restless Observation: 1= Difficult to Sit Still Pupil Size: 0= Normal to Room Light Bone or Joint Aches: 2= Severe Diffuse Aches Runny Nose/ Eye Tearin= None GI Upset > 30mins: 2= Nausea/Diarrhea Tremor Observation of Outstretched Hands: 0= None Yawning Observation: 1= 1-2x During Session Anxiety or Irritability: 2=Irritable/Anxious Goose Flesh Skin: 3=Piloerection COWS Score: 13 S Progress Note (SOAP) Subjective: Anxious, Sweating, Nausea, Body Aches, Constipation, Poor Appetite. Objective: PATIENT A & O X 3, OBSERVED AMBULATING ON UNIT. IN NO ACUTE DISTRESS. 09/02/18 15:39 Vital Signs Temperature 98.7 F 09/02/18 13:33 Pulse Rate 90 09/02/18 13:33 Respiratory Rate 20 09/02/18 13:33 Blood Pressure 109/74 09/02/18 13:33 O2 Sat by Pulse Oximetry (%) Laboratory Tests 08/31/18 09/01/18 09/01/18 23:20 06:34 07:00 WBC 5.3 RBC 4.20 Hgb 10.6 L Hct 32.3 L MCV 76.9 L MCH 25.1 L MCHC 32.7 RDW 19.9 H Plt Count 277 MPV 7.9 Sodium Potassium Chloride Carbon Dioxide Anion Gap BUN Creatinine Creat Clearance w eGFR Random Glucose Calcium Total Bilirubin AST ALT Alkaline Phosphatase Total Protein Albumin Urine Color Dkyellow Ltyellow Urine Appearance Cloudy Clear Urine pH 8.0 D 5.0 D Ur Specific [place] 1.024 1.011 Urine Protein 2+ H Negative Urine Glucose (UA) Negative Negative Urine Ketones Negative Negative Urine Blood Negative Negative Urine Nitrite Negative Negative Urine Bilirubin Negative Negative Urine Urobilinogen 2.0 H Negative Ur Leukocyte Esterase 3+ H Trace Urine WBC (Auto) 14 3 Urine RBC (Auto) 6 1 Ur Epithelial Cells Many Rare Urine Bacteria Rare Urine Mucus Moderate RPR Titer 09/01/18 09/01/18 07:00 07:00 WBC RBC Hgb Hct MCV MCH MCHC RDW Plt Count MPV Sodium 135 L Potassium 4.2 Chloride 101 Carbon Dioxide 28 Anion Gap 7 L BUN 15 Creatinine 0.9 Creat Clearance w eGFR > 60 Random Glucose 88 Calcium 9.0 Total Bilirubin 0.2 AST 10 L ALT 12 L Alkaline Phosphatase 53 Total Protein 7.5 Albumin 3.5 Urine Color Urine Appearance Urine pH Ur Specific [place] Urine Protein Urine Glucose (UA) Urine Ketones Urine Blood Urine Nitrite Urine Bilirubin Urine Urobilinogen Ur Leukocyte Esterase Urine WBC (Auto) Urine RBC (Auto) Ur Epithelial Cells Urine Bacteria Urine Mucus RPR Titer Nonreactive LABS NOTED. RESULTS OF REPEAT UA NOTED. 09/02/18 15:44 Assessment: 09/02/18 15:42 WITHDRAWAL SYMPTOMS. ANEMIA. 09/02/18 15:43 Plan: CONTINUE DETOX. CONTINUE FEOSOL, 325 MG PO TIDCM. COLACE, 100 MG PO TID FOR CONSTIPATION. INCREASE DAILY PO FLUID INTAKE. PRN TIGAN PO FOR NAUSEA. REPEAT CBC SCHEDULED FOR TOMORROW (FOR ANEMIA NOTED ON ADMISSION).
[2018-09-02] MEDS: DOCUSATE SODIUM 100 MG CAPSULE (FP) PO SCH ×2 (16:01→22:14)
[2018-09-02] MEDS: LIDOCAINE 5% TOPICAL PATCH TP SCH (16:01)
[2018-09-02] MEDS: QUEtiapine FUMARATE 100 MG TABLET (FP) PO SCH (22:13)
[2018-09-02] MEDS: THIAMINE HCL 100 MG TABLET (FP) PO SCH (22:14)
[2018-09-02] MEDS: BACLOFEN 10 MG TABLET (FP) PO PRN (22:14)
[2018-09-02] MEDS: LIDOCAINE PATCH REMOVAL MC SCH (22:40)
[2018-09-03] MEDS: PHENobarbital 30 MG TABLET PO SCH ×3 (05:48→22:00)
[2018-09-03] MEDS: diazePAM 5 MG TABLET PO PRN ×3 (05:49→17:06)
[2018-09-03] MEDS: DOCUSATE SODIUM 100 MG CAPSULE (FP) PO SCH ×3 (05:49→22:02)
[2018-09-03] MEDS: FERROUS SO4 325 MG TABLET (FP) PO SCH ×3 (07:28→17:05)
[2018-09-03] MEDS: diazePAM 5 MG TABLET PO SCH ×2 (10:24→22:00)
[2018-09-03] MEDS: levETIRAcetam 500 MG TABLET (FP) PO SCH ×2 (10:24→22:01)
[2018-09-03] MEDS: METHADONE HCL 5 MG TABLET (FOR DETOX USE ONLY) PO SCH (10:24)
[2018-09-03] MEDS: PANTOPRAZOLE 40 MG TABLET (FP) PO SCH (10:25)
[2018-09-03] MEDS: LIDOCAINE 5% TOPICAL PATCH TP SCH (10:25)
[2018-09-03] MEDS: PRENATAL VITAMINS W/ FOLIC ACID TABLET (FP) PO SCH (10:25)
[2018-09-03] MEDS: FLUoxetine HCL 20 MG CAPSULE (FP) PO SCH (10:25)
[2018-09-03] MEDS: NICOTINE 21 MG/24 HOURS TOPICAL PATCH TD SCH (10:25)
[2018-09-03] MEDS: NICOTINE POLACRILEX 2 MG GUM BC PRN ×2 (10:28→13:05)
[2018-09-03] MEDS: ACETAMINOPHEN 325 MG TABLET (FP) PO PRN (13:07)
[2018-09-03] MEDS ORDERED: CEPHALEXIN MONOHYDRATE 500 MG CAPSULE (UD) PO SCH (14:00)
[2018-09-03 14:02] LABS: BASO % 0.9 % (0-2.0); EOS % 3.8 % (0-4.5); HEMATOCRIT 31.8 % (32.4-45.2); HEMOGLOBIN 10.5 GM/dL (10.7-15.3); LYMPH % 38.2 % (8-40); MCH 24.9 pg (25.7-33.7); MEAN CELL VOLUME 75.4 fl (80-96); MEAN PLT VOLUME 8.2 fl (7.5-11.1); MONO % 10.7 % (3.8-10.2); NEUT % 46.4 % (42.8-82.8); PLATELET COUNT 269 K/MM3 (134-434); RBC 4.21 M/mm3 (3.60-5.2); RDW 19.6 % (11.6-15.6); WHITE BLOOD COUNT 5.2 K/mm3 (4.0-10.0)
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
[2018-09-03] MEDS ORDERED: SULFAMETHOXAZOLE/TRIMETHOPRIM 800MG/160MG D.S. TABLET PO ONE (14:31)
[2018-09-03] MEDS: BACITRACIN 0.9 GM PACKET TP SCH ×2 (14:53→22:00)
[2018-09-03] MEDS: THIAMINE HCL 100 MG TABLET (FP) PO SCH (21:59)
[2018-09-03] MEDS: LIDOCAINE PATCH REMOVAL MC SCH (22:01)
[2018-09-03] MEDS: QUEtiapine FUMARATE 100 MG TABLET (FP) PO SCH (22:01)
[2018-09-03] MEDS: BACLOFEN 10 MG TABLET (FP) PO PRN (22:02)
[2018-09-03] MEDS: SULFAMETHOXAZOLE/TRIMETHOPRIM 800MG/160MG D.S. TABLET PO SCH (22:02)
[2018-09-04] MEDS: DOCUSATE SODIUM 100 MG CAPSULE (FP) PO SCH ×3 (05:57→23:30)
[2018-09-04] MEDS: PHENobarbital 30 MG TABLET PO SCH ×2 (05:57→18:09)
[2018-09-04] MEDS: FERROUS SO4 325 MG TABLET (FP) PO SCH ×3 (07:00→18:49)
[2018-09-04] MEDS ORDERED: ONDANSETRON *ODT* 4 MG TABLET SL ONE (08:46)
[2018-09-04 09:37] VITALS: BP 126/91; PULSE 87; TEMP 97.5
[2018-09-04] MEDS ORDERED: TRIMETHOBENZAMIDE HCL 200MG/2ML INJ IM ONE (09:39)
[2018-09-04] MEDS ORDERED: diazePAM 5 MG TABLET PO SCH (10:00)
[2018-09-04] MEDS ORDERED: METHADONE HCL 10 MG TABLET (FOR DETOX USE ONLY) PO SCH (10:00)
[2018-09-04] MEDS: PRENATAL VITAMINS W/ FOLIC ACID TABLET (FP) PO SCH (10:08)
[2018-09-04] MEDS: PANTOPRAZOLE 40 MG TABLET (FP) PO SCH (10:09)
[2018-09-04] MEDS ORDERED: LORazepam 2 MG/ML SDV VIAL ONE (10:53)
--- NOTE | 2018-09-04 11:11 | PN ---
S CIWA - CIWA Score Nausea/Vomitin Muscle Tremors: 2 Anxiety: 3 Agitation: 1-Slight > Activity Paroxysmal Sweats: 1-Minimal Palms Moist Orientation: 1-Uncertain about Date Tacttile Disturbances: 0-None Auditory Disturbances: 0-None Visual Disturbances: 0-None Headache: 2-Mild CIWA-Ar Total Score: 12 [facility] COWS - Scale Resting Pulse: 1= [place] 81-100 Sweatin= Chills/Flushing Restless Observation: 0= Sits Still Pupil Size: 0= Normal to Room Light Bone or Joint Aches: 1= Mild Discomfort Runny Nose/ Eye Tearin= Nasal Congestion GI Upset > 30mins: 3= Vomiting/Diarrhea Tremor Observation of Outstretched Hands: 1= Tremor [place], Not Seen Yawning Observation: 0= None Anxiety or Irritability: 1=Feels Anxious/Irritable Goose Flesh Skin: 0=Smooth Skin COWS Score: 9 S Progress Note (SOAP) Subjective: vomitus noted in bathroom, zofran 4 mg sl x 1 given around 9 am without effect tigan IM x 1 200 mg at 0930 with good effect tolerate methadone valium phenobarbital and bactrim ds mild tremor less sweating denies body aches but nausea and vomiting patient had seizure episode in front of the nurse station around 1049, rapid respond was call around 1050 ambulance was called around 1055 head was protected patient lying on floor O2 3L bp 122/66 ap 109 initial episode about 1 minute, second about 4 seconds and third about 4 seconds ativan 2 mg im given around 10[address] information provided to ER [address]. Gibbs ambulance arrived around 1100 left around 1108 patient is alert smile and gesture goodby Objective: 09/04/18 12:25 Vital Signs Temperature 97.5 F L 09/04/18 09:36 Pulse Rate 87 09/04/18 09:36 Respiratory Rate 18 09/04/18 09:36 Blood Pressure 126/91 09/04/18 09:36 O2 Sat by Pulse Oximetry (%) Laboratory Last Values WBC 5.2 K/mm3 (4.0-10.0) 09/03/18 10:00 RBC 4.21 M/mm3 (3.60-5.2) 09/03/18 10:00 Hgb 10.5 GM/dL (10.7-15.3) L 09/03/18 10:00 Hct 31.8 % (32.4-45.2) L 09/03/18 10:00 MCV 75.4 fl (80-96) L 09/03/18 10:00 MCH 24.9 pg (25.7-33.7) L 09/03/18 10:00 MCHC 33.0 g/dl (32.0-36.0) 09/03/18 10:00 RDW 19.6 % (11.6-15.6) H 09/03/18 10:00 Plt Count 269 K/MM3 (134-434) 09/03/18 10:00 MPV 8.2 fl (7.5-11.1) 09/03/18 10:00 Absolute Neuts (auto) 2.4 K/mm3 (1.5-8.0) 09/03/18 10:00 Neutrophils % 46.4 % (42.8-82.8) 09/03/18 10:00 Lymphocytes % 38.2 % (8-40) 09/03/18 10:00 Monocytes % 10.7 % (3.8-10.2) H 09/03/18 10:00 Eosinophils % 3.8 % (0-4.5) 09/03/18 10:00 Basophils % 0.9 % (0-2.0) 09/03/18 10:00 Nucleated RBC % 0 % (0-0) 09/03/18 10:00 Sodium 135 mmol/L (136-145) L 09/01/18 07:00 Potassium 4.2 mmol/L (3.5-5.1) 09/01/18 07:00 Chloride 101 mmol/L (98-107) 09/01/18 07:00 Carbon Dioxide 28 mmol/L (21-32) 09/01/18 07:00 Anion Gap 7 MMOL/L (8-16) L 09/01/18 07:00 BUN 15 mg/dL (7-18) 09/01/18 07:00 Creatinine 0.9 mg/dL (0.55-1.3) 09/01/18 07:00 Creat Clearance w eGFR > 60 (>60) 09/01/18 07:00 Random Glucose 88 mg/dL (74-106) 09/01/18 07:00 Calcium 9.0 mg/dL (8.5-10.1) 09/01/18 07:00 Total Bilirubin 0.2 mg/dL (0.2-1) 09/01/18 07:00 AST 10 U/L (15-37) L 09/01/18 07:00 ALT 12 U/L (13-61) L 09/01/18 07:00 Alkaline Phosphatase 53 U/L (45-117) 09/01/18 07:00 Total Protein 7.5 g/dl (6.4-8.2) 09/01/18 07:00 Albumin 3.5 g/dl (3.4-5.0) 09/01/18 07:00 Urine Color Ltyellow 09/01/18 06:34 Urine Appearance Clear 09/01/18 06:34 Urine pH 5.0 (5.0-8.0) D 09/01/18 06:34 Ur Specific [place] 1.011 (1.010-1.035) 09/01/18 06:34 Urine Protein Negative (NEGATIVE) 09/01/18 06:34 Urine Glucose (UA) Negative (NEGATIVE) 09/01/18 06:34 Urine Ketones Negative (NEGATIVE) 09/01/18 06:34 Urine Blood Negative (NEGATIVE) 09/01/18 06:34 Urine Nitrite Negative (NEGATIVE) 09/01/18 06:34 Urine Bilirubin Negative (<2.0 mg/dL) 09/01/18 06:34 Urine Urobilinogen Negative mg/dL (0.2-1.0) 09/01/18 06:34 Ur Leukocyte Esterase Trace (NEGATIVE) 09/01/18 06:34 Urine WBC (Auto) 3 /hpf (3-5) 09/01/18 06:34 Urine RBC (Auto) 1 /hpf (0-3) 09/01/18 06:34 Ur Epithelial Cells Rare /HPF (FEW) 09/01/18 06:34 Urine Bacteria Rare /hpf (NONE SEEN) 08/31/18 23:20 Urine Mucus Moderate 08/31/18 23:20 Levetiracetam 20.1 MCG/ML (10.0-40.0) 09/01/18 07:00 RPR Titer Nonreactive (NONREACTIVE) 09/01/18 07:00 lab noted Assessment: 09/04/18 12:26 mild benzo and opiate withdrawal sx seizure Plan: continue detox keppra phenobarbital
[2018-09-04] MEDS: LIDOCAINE 5% TOPICAL PATCH TP SCH (11:17)
[2018-09-04] MEDS: SULFAMETHOXAZOLE/TRIMETHOPRIM 800MG/160MG D.S. TABLET PO SCH ×2 (11:17→23:29)
[2018-09-04] MEDS: BACITRACIN 0.9 GM PACKET TP SCH ×2 (11:17→23:29)
[2018-09-04] MEDS: NICOTINE 21 MG/24 HOURS TOPICAL PATCH TD SCH (11:17)
[2018-09-04] MEDS: levETIRAcetam 500 MG TABLET (FP) PO SCH (11:17)
[2018-09-04] MEDS: FLUoxetine HCL 20 MG CAPSULE (FP) PO SCH (11:17)
[2018-09-04] MEDS ORDERED: LORazepam 2 MG/ML SDV VIAL IM ONE (12:12)
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
[2018-09-04] MEDS ORDERED: QUEtiapine FUMARATE 100 MG TABLET (FP) PO SCH (22:00)
[2018-09-04] MEDS ORDERED: ENOXAPARIN NA (PORCINE) 30 MG/0.3 ML DISP.SYRIN SQ SCH (22:00)
[2018-09-04] MEDS ORDERED: PHENobarbital 30 MG TABLET PO SCH (22:00)
[2018-09-04] MEDS ORDERED: levETIRAcetam 500 MG TABLET (FP) PO SCH (22:00)
[2018-09-04] MEDS: LIDOCAINE PATCH REMOVAL MC SCH (23:31)
[2018-09-04] MEDS: THIAMINE HCL 100 MG TABLET (FP) PO SCH (23:31)
[2018-09-05] MEDS ORDERED: METHADONE HCL 5 MG TABLET (FOR DETOX USE ONLY) PO SCH (06:00)
== END 2018-09-04 23:36 | disposition short-term general hospital (02) | DRG 773 ==
LOC: YASAS 14:31 → Y3N 19:31
PROVIDERS: ADMIT Surgery; ATTEND Surgery
PROC: HZ2ZZZZ Detoxification Services for Substance Abuse Treatment (ICD-10-PCS; principal; 2018-08-31)
DX: F11.23 Opioid dependence with withdrawal (principal); F13.230 Sedative, hypnotic or anxiolytic dependence with withdrawal, uncomplicated; F14.20 Cocaine dependence, uncomplicated; F12.20 Cannabis dependence, uncomplicated; F17.210 Nicotine dependence, cigarettes, uncomplicated; I48.91 Unspecified atrial fibrillation; J45.909 Unspecified asthma, uncomplicated; D50.9 Iron deficiency anemia, unspecified; L03.113 Cellulitis of right upper limb; R82.90 Unspecified abnormal findings in urine; G40.509 Epileptic seizures related to external causes, not intractable, without status epilepticus; Z88.0 Allergy status to penicillin; Z87.820 Personal history of traumatic brain injury; Z91.5 Personal history of self-harm
CPT/HCPCS: 36415; 80053; 80177; 81003; 81015; 85025; 85027; 86593; 93005; 93010; J0475; Q0162

== ENCOUNTER 2018-09-04 11:35 | Inpatient (IN) | payer OTHER ==
[~2018-09-04 11:35] MED LIST: METHADONE HCL 5 MG TABLET PO ONE
[2018-09-04] MEDS ORDERED: LORazepam 2 MG/ML SDV VIAL ONE ×6 (11:45→19:46)
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
--- NOTE | 2018-09-04 11:55 | PDOC ---
Attending Attestation - Resident Resident Name: Arlen Etienne - ED Attending Attestation I have performed the following: I have examined & evaluated the patient, The case was reviewed & discussed with the resident, I agree w/resident's findings & plan, Exceptions are as noted - HPI HPI: 09/04/18 14:51 see below - Physicial Exam PE: 09/04/18 12:18 GENERAL: The patient is awake, alert, and fully oriented, Nontoxic - in no acute distress. HEAD: Normocephalic, atraumatic. EYES: extraocular movements intact, sclera anicteric, conjunctiva clear, pupils 6 mm b/l reactive to light ENT: Normal voice, Moist mucous membranes, poor dentition NECK: Normal range of motion, supple LUNGS: Breath sounds equal, clear to auscultation bilaterally. No wheezes, no rhonchi, no rales. HEART: Regular rate and rhythm, normal S1 and S2 without murmur, rub or gallop. ABDOMEN: Soft, nontender, normoactive bowel sounds. No guarding, no rebound. . No CVA tenderness EXTREMITIES: Normal range of motion, no edema. No clubbing or cyanosis. No cords, erythema, or tenderness. NEUROLOGICAL: No facial assymetry, Normal speech, moving all 4 extremities spontaneously and symmetrically, sensation intact and symmetric in each extermity PSYCH: Normal mood, normal affect. SKIN: Warm, Dry, normal turgor, - Medical Decision Making 09/04/18 11:53 33y F hx of seizures s/p TBI (on multiple seizure meds, well controlled when on her meds), anemia, asthma, hl, depression, presents s/p seizure. The patient has been at [facility] for detox for the last several days and was doing well had multiple seizures today witnessed by staff at [facility] - was given 2 IM of Ativan at [facility], EMS witnessed a tonic-clonic seizure lasting approximately 1.5 minutes was given 2.5 versed IV, upon arrival the patient as well and then had a approximately 4 minute seizure patient was given 2 mg of Ativan IV. In the ED the patient's vitals and saturation remained normal throughout her seizure signs of vomiting. Patient was postictal very briefly, and then was able to answers questions. Pt notes that her seizure medications were modified while at [facility] ( phenobarb 4x daily to 3 times daily, and had d/c'd her vimpat. will send levels as patient has had multiple seizure episodes 09/04/18 13:55 pt had another tonic-clonic seizure lasting approximately 1 minute patient became tachycardic to 120s, oxygenation was normal. The patient also again seemed to have a very brief postictal period. The patient's seizure stopped prior to administration of Ativan, 2mg was wasted. As the patient has had multiple tonic-clonic seizures here [id number] admission for EEG we'll also obtain a CT of the head. 09/04/18 16:55 ct neg for acute process will admit the patient for further management of seizures and for EEG
[2018-09-04 12:10] LABS: BASO % 0.9 % (0-2.0); EOS % 1.3 % (0-4.5); HEMATOCRIT 36.7 % (32.4-45.2); HEMOGLOBIN 12.4 GM/dL (10.7-15.3); LYMPH % 29.4 % (8-40); MCH 25.7 pg (25.7-33.7); MCHC 33.8 g/dl (32.0-36.0); MEAN CELL VOLUME 76.1 fl (80-96); MEAN PLT VOLUME 7.7 fl (7.5-11.1); MONO % 6.4 % (3.8-10.2); PLATELET COUNT 288 K/MM3 (134-434); RBC 4.82 M/mm3 (3.60-5.2); RDW 19.5 % (11.6-15.6)
[2018-09-04 12:56] LABS: ALBUMIN 4.2 g/dl (3.4-5.0); ALK PHOS 61 U/L (45-117); ANION GAP 10 MMOL/L (8-16); BILIRUBIN,TOTAL 0.3 mg/dL (0.2-1); BLOOD UREA NITROGEN 14 mg/dL (7-18); CALCIUM 9.5 mg/dL (8.5-10.1); CHLORIDE 99 mmol/L (98-107); CO2 27 mmol/L (21-32); CREATININE 1.2 mg/dL (0.55-1.3); GLUCOSE,RANDOM 104 mg/dL (74-106); PHOSPHOROUS 3.6 mg/dL (2.5-4.9); SGOT/AST 9 U/L (15-37); SGPT/ALT 13 U/L (13-61); SODIUM 136 mmol/L (136-145); TOT PROT 8.7 g/dl (6.4-8.2)
[2018-09-04] MEDS ORDERED: ACETAMINOPHEN 1000 MG/100 ML VIAL (NON FORMULARY) IVPB ONE (13:52)
[2018-09-04] MEDS ORDERED: ACETAMINOPHEN INJECTION 100 ML IVPB ONE (14:06)
[2018-09-04] MEDS ORDERED: PHENobarbital 15 MG TABLET PO ONE (14:40)
[2018-09-04] MEDS ORDERED: levETIRAcetam 500 MG/5 ML INJECTION VIAL IVPB ONE ×2 (14:42→14:45)
[2018-09-04] MEDS ORDERED: SODIUM CHLORIDE 1,000 ML IV STA (14:42)
[2018-09-04 15:00] LABS: URINE APPEARANCE CLEAR; URINE BILIRUBIN NEGATIVE (<2.0 mg/dL); URINE COLOR YELLOW; URINE GLUCOSE (UA) NEGATIVE (NEGATIVE); URINE KETONE NEGATIVE (NEGATIVE); URINE LEUK ESTERASE NEGATIVE (NEGATIVE); URINE NITRITE NEGATIVE (NEGATIVE); URINE PROTEIN NEGATIVE (NEGATIVE); URINE UROBILINOGEN NEGATIVE mg/dL (0.2-1.0)
[2018-09-04 15:02] LABS: COCAINE, UR NEGATIVE ng/ml (CUTOFF=300); METHADONE, UR NEGATIVE ng/ml (CUTOFF=300); OPIATES, URI NEGATIVE ng/ml (CUTOFF=300); PHENCYCLIDINE,URINE NEGATIVE ng/ml (CUTOFF=25); URINE AMPHETAMINES NEGATIVE ng/ml (CUTOFF=500)
[2018-09-04 15:06] LABS: URINE BARBITURATES POSITIVE ng/ml (CUTOFF=200); URINE BENZODIAZEPINES POSITIVE ng/ml (CUTOFF=200)
--- NOTE | 2018-09-04 18:57 | PDOC ---
*Physical Exam - Vital Signs Last Vital Signs Temp Pulse Resp BP Pulse Ox 98.8 F 84 18 112/78 98 09/04/18 11:38 09/04/18 13:59 09/04/18 13:59 09/04/18 13:59 09/04/18 13:59 ED Treatment Course - LABORATORY CBC & Chemistry Diagram: 09/04/18 12:00 09/04/18 12:03 - ADDITIONAL ORDERS Additional order review: Laboratory Results 09/04/18 09/04/18 13:15 12:03 Sodium 136 Potassium 5.0 Chloride 99 Carbon Dioxide 27 Anion Gap 10 BUN 14 Creatinine 1.2 Creat Clearance w eGFR 51.43 Random Glucose 104 Lactic Acid 1.7 Calcium 9.5 Phosphorus 3.6 Magnesium 2.0 Total Bilirubin 0.3 AST 9 L ALT 13 Alkaline Phosphatase 61 Total Protein 8.7 H Albumin 4.2 09/04/18 12:00 RBC 4.82 MCV 76.1 L MCHC 33.8 RDW 19.5 H MPV 7.7 Neutrophils % 62.0 D Lymphocytes % 29.4 D Monocytes % 6.4 Eosinophils % 1.3 Basophils % 0.9 - Medications Given in the ED: ED Medications Discontinued Medications Generic Name Dose Route Start Last Admin Trade Name Freq PRN Reason Stop Dose Admin Acetaminophen 1,000 mg 09/04/18 13:52 09/04/18 14:09 Ofirmev Injection - IVPB 09/04/18 13:53 1,000 mg ONCE ONE Administration Diphenhydramine HCl 25 mg 09/04/18 12:03 09/04/18 14:44 Benadryl Injection - IVPUSH 09/04/18 12:04 Not Given ONCE ONE Sodium Chloride 1,000 mls @ 1,000 mls/hr 09/04/18 14:42 09/04/18 14:52 Normal Saline - IV 09/04/18 15:41 1,000 mls/hr ASDIR STA Administration Levetiracetam 1,500 mg 09/04/18 14:42 09/04/18 14:52 Keppra Injection - IVPB 09/04/18 14:43 1,500 mg ONCE ONE Administration Lorazepam 2 mg 09/04/18 12:06 09/04/18 11:47 Ativan Injection - IVPUSH 09/04/18 12:07 2 mg ONCE ONE Administration Lorazepam 2 mg 09/04/18 12:19 09/04/18 12:20 Ativan Injection - IVPUSH 09/04/18 12:20 2 mg ONCE ONE Administration Lorazepam 2 mg 09/04/18 14:27 09/04/18 14:29 Ativan Injection - IVPUSH 09/04/18 14:28 2 mg ONCE ONE Administration Lorazepam 2 mg 09/04/18 18:42 09/04/18 18:46 Ativan Injection - IVPUSH 09/04/18 18:43 2 mg ONCE ONE Administration Phenobarbital 30 mg 09/04/18 14:40 09/04/18 15:12 Phenobarbital - PO 09/04/18 14:41 30 mg ONCE ONE Administration Medical Decision Making - Medical Decision Making Pt was signed out to me by resident Dr. Brennan, who explained the presentation, ED course, any pending results, and needed interventions. Pending interventions include pt being taken upstairs to floor team. Pt has continued to have seizure- like activity with no post-ictal activity, incontinence, or respiratory distress. Pt was just provided normal saline flush with improvement of seizure- like activity. Pt is currently stable and is lying comfortably. Pt so far has received keppra loading 1500 mg, 14.5 mg ativan, and has 8 episodes of seizure-like activity. 09/04/18 18:55 Additional sz activity. Saline flush provided. Pt sz activity stopped. No post- ictal period. Pt was clearing secretions during sz-like activity. 09/04/18 19:16 Pt had additional seizure like activity. Provided 2 mg IV ativan. Paged hospitalist team for further medication recommendations. Hospitalist team saw pt at bedside and placed further orders. 09/04/18 20:22 Pt had no further seizure activity and was resting comfortably. Pt was taken to the floor. 09/04/18 21:13 *DC/Admit/Observation/Transfer Diagnosis at time of Disposition: Seizure, Cocaine dependence, uncomplicated, Cannabis dependence, uncomplicated , Sedative, hypnotic or anxiolytic dependence with withdrawal, uncomplicated - Discharge Dispostion Condition at time of disposition: Stable Decision to Admit order: Yes - Referrals - Patient Instructions - Post Discharge Activity
[2018-09-04] MEDS ORDERED: ALBUTEROL SO4 8 GM HFA INHALER IH PRN (19:35)
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
[2018-09-04] MEDS ORDERED: LORazepam 2 MG/ML SDV VIAL IVPUSH PRN (20:23)
[2018-09-04] MEDS: ACETAMINOPHEN 325 MG TABLET (FP) PO SCH ×2 (20:41→22:26)
[2018-09-04] MEDS ORDERED: LACOSAMIDE 50 MG TABLET PO ONE (22:00)
[2018-09-04] MEDS ORDERED: PT OWN MED DRAWER 7, Y5N ONE (22:11)
[2018-09-04] MEDS: levETIRAcetam 500 MG TABLET (FP) PO SCH (22:13)
[2018-09-04] MEDS: FERROUS SO4 325 MG TABLET (FP) PO SCH (22:13)
[2018-09-04] MEDS: DOCUSATE SODIUM 100 MG CAPSULE (FP) PO SCH (22:13)
[2018-09-04] MEDS: QUEtiapine FUMARATE 100 MG TABLET (FP) PO SCH (22:14)
[2018-09-04] MEDS: PHENobarbital 30 MG TABLET PO SCH (22:14)
[2018-09-04] MEDS: THIAMINE HCL 100 MG TABLET (FP) PO SCH (22:14)
[2018-09-04] MEDS: BACLOFEN 10 MG TABLET (FP) PO SCH (22:14)
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
[2018-09-05] MEDS: ACETAMINOPHEN 325 MG TABLET (FP) PO SCH ×6 (03:57→22:19)
[2018-09-05] MEDS ORDERED: SODIUM CHLORIDE 1,000 ML IV STA (04:43)
[2018-09-05] MEDS: PHENobarbital 30 MG TABLET PO SCH ×3 (05:39→22:18)
[2018-09-05] MEDS: DOCUSATE SODIUM 100 MG CAPSULE (FP) PO SCH ×3 (05:39→22:18)
[2018-09-05] MEDS: FERROUS SO4 325 MG TABLET (FP) PO SCH ×3 (05:39→22:20)
[2018-09-05] MEDS ORDERED: SODIUM CHLORIDE 1,000 ML IV SCH (05:45)
[2018-09-05 06:19] LABS: HEMOGLOBIN 9.3 GM/dL (10.7-15.3); MCH 25.4 pg (25.7-33.7); MCHC 33.3 g/dl (32.0-36.0); MEAN CELL VOLUME 76.4 fl (80-96); MEAN PLT VOLUME 7.8 fl (7.5-11.1); PLATELET COUNT 238 K/MM3 (134-434); RBC 3.66 M/mm3 (3.60-5.2); RDW 19.4 % (11.6-15.6); WHITE BLOOD COUNT 5.3 K/mm3 (4.0-10.0)
[2018-09-05 06:54] LABS: ANION GAP 6 MMOL/L (8-16); BLOOD UREA NITROGEN 13 mg/dL (7-18); CALCIUM 7.9 mg/dL (8.5-10.1); CHLORIDE 105 mmol/L (98-107); CO2 26 mmol/L (21-32); CREATININE 0.8 mg/dL (0.55-1.3); GLUCOSE,RANDOM 76 mg/dL (74-106); MAGNESIUM 2.2 mg/dL (1.8-2.4); PHOSPHOROUS 4.2 mg/dL (2.5-4.9); POTASSIUM 4.2 mmol/L (3.5-5.1); SODIUM 138 mmol/L (136-145)
[2018-09-05] MEDS ORDERED: PT OWN MED DRAWER 7, Y5N ONE ×2 (09:16→21:25)
[2018-09-05] MEDS: PANTOPRAZOLE 40 MG TABLET (FP) PO SCH (09:30)
[2018-09-05] MEDS: BACLOFEN 10 MG TABLET (FP) PO SCH ×2 (09:30→22:18)
[2018-09-05] MEDS ORDERED: METHADONE HCL 5 MG TABLET PO ONE (10:00)
[2018-09-05] MEDS: NICOTINE 21 MG/24 HOURS TOPICAL PATCH TD SCH (10:21)
[2018-09-05] MEDS: levETIRAcetam 500 MG TABLET (FP) PO SCH ×2 (10:23→22:22)
--- NOTE | 2018-09-05 10:46 | EKG ---
Test Reason : Blood Pressure : / mmHG Vent. Rate : 079 BPM Atrial Rate : 079 BPM P-R Int : 168 ms QRS Dur : 094 ms QT Int : 416 ms P-R-T Axes : 064 085 049 degrees QTc Int : 477 ms NORMAL SINUS RHYTHM POSSIBLE LEFT ATRIAL ENLARGEMENT INCOMPLETE RIGHT BUNDLE BRANCH BLOCK BORDERLINE ECG WHEN COMPARED WITH ECG OF 01-SEP-2018 10:11, NO SIGNIFICANT CHANGE WAS FOUND Confirmed by TEX DUNCAN, DON ([id number]) on 09/05/2018 10:45:56 AM Referred By: Confirmed By:DON NICE MD
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
[2018-09-05] MEDS ORDERED: LORazepam 2 MG/ML SDV VIAL IVPUSH ONE (13:18)
[2018-09-05 13:37] VITALS: BMI 20.9
[2018-09-05] MEDS: LORazepam 2 MG/ML SDV VIAL IVPUSH PRN ×4 (14:13→18:24)
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
[2018-09-05] MEDS ORDERED: Lacosamide 200 MG/20 ML VIAL IVPB ONE (18:29)
[2018-09-05] MEDS: THIAMINE HCL 100 MG TABLET (FP) PO SCH (22:18)
[2018-09-05] MEDS: QUEtiapine FUMARATE 100 MG TABLET (FP) PO SCH (22:18)
[2018-09-05] MEDS ORDERED: LIDOCAINE 5% TOPICAL PATCH TP ONE (22:44)
[2018-09-05] MEDS ORDERED: ONDANSETRON 4 MG/2 ML VIAL IVPUSH PRN (22:56)
[2018-09-05] MEDS ORDERED: ONDANSETRON 4 MG/2 ML VIAL ONE (23:03)
[2018-09-06] MEDS: ACETAMINOPHEN 325 MG TABLET (FP) PO SCH ×4 (02:21→14:30)
[2018-09-06] MEDS: PHENobarbital 30 MG TABLET PO SCH ×3 (06:31→21:40)
[2018-09-06] MEDS: DOCUSATE SODIUM 100 MG CAPSULE (FP) PO SCH ×3 (06:31→21:43)
[2018-09-06] MEDS: FERROUS SO4 325 MG TABLET (FP) PO SCH ×3 (06:31→21:43)
[2018-09-06] MEDS: LIDOCAINE PATCH REMOVAL MC SCH ×2 (06:39→21:50)
[2018-09-06 06:50] LABS: ANION GAP 7 MMOL/L (8-16); BLOOD UREA NITROGEN 8 mg/dL (7-18); CALCIUM 8.4 mg/dL (8.5-10.1); CHLORIDE 101 mmol/L (98-107); CO2 27 mmol/L (21-32); CREATININE 0.9 mg/dL (0.55-1.3); GLUCOSE,RANDOM 80 mg/dL (74-106); SODIUM 135 mmol/L (136-145)
[2018-09-06] MEDS: LORazepam 2 MG/ML SDV VIAL IVPUSH PRN ×7 (06:56→20:18)
[2018-09-06 07:02] LABS: HEMATOCRIT 29.6 % (32.4-45.2); HEMOGLOBIN 10.2 GM/dL (10.7-15.3); MCH 26.3 pg (25.7-33.7); MCHC 34.4 g/dl (32.0-36.0); MEAN CELL VOLUME 76.7 fl (80-96); PLATELET COUNT 215 K/MM3 (134-434); RBC 3.86 M/mm3 (3.60-5.2); RDW 19.5 % (11.6-15.6); WHITE BLOOD COUNT 6.6 K/mm3 (4.0-10.0)
[2018-09-06] MEDS ORDERED: PT OWN MED DRAWER 7, Y5N ONE ×5 (09:05→22:38)
[2018-09-06] MEDS ORDERED: NICOTINE POLACRILEX 4 MG GUM BUC PRN (09:23)
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
[2018-09-06] MEDS: PANTOPRAZOLE 40 MG TABLET (FP) PO SCH (09:55)
[2018-09-06] MEDS: levETIRAcetam 500 MG TABLET (FP) PO SCH (09:55)
[2018-09-06] MEDS: NICOTINE 21 MG/24 HOURS TOPICAL PATCH TD SCH (09:55)
[2018-09-06] MEDS: FLUoxetine HCL 20 MG CAPSULE (FP) PO SCH (09:56)
[2018-09-06] MEDS: MAGNESIUM CITRATE 300 ML BOTTLE PO SCH (09:56)
[2018-09-06] MEDS: BACLOFEN 10 MG TABLET (FP) PO SCH ×2 (09:56→21:41)
[2018-09-06] MEDS ORDERED: Lacosamide 50 MG/5 ML ORAL SOLUTION UNIT CUPS PO SCH (10:00)
[2018-09-06] MEDS ORDERED: BUPRENORPHINE/NALOXONE 2 MG/0.5 MG FILM PACKET SL ONE ×2 (15:41→17:15)
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
[2018-09-06] MEDS: levETIRAcetam 500 MG/5 ML INJECTION VIAL IVPB SCH (19:25)
[2018-09-06] MEDS ORDERED: LORazepam 2 MG/ML SDV VIAL ONE ×2 (19:33→19:54)
[2018-09-06] MEDS ORDERED: levETIRAcetam 500 MG/5 ML INJECTION VIAL IVPB ONE (19:46)
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
[2018-09-06] MEDS: THIAMINE HCL 100 MG TABLET (FP) PO SCH (21:40)
[2018-09-06] MEDS: clonazePAM 2 MG TABLET PO SCH (21:42)
[2018-09-06] MEDS: QUEtiapine FUMARATE 100 MG TABLET (FP) PO SCH (21:43)
[2018-09-06] MEDS: BUPRENORPHINE/NALOXONE 2 MG/0.5 MG FILM PACKET SL SCH (21:45)
[2018-09-06] MEDS: Lacosamide 50 MG/5 ML ORAL SOLUTION UNIT CUPS PO SCH (23:03)
[2018-09-07] MEDS: ACETAMINOPHEN 325 MG TABLET (FP) PO SCH ×4 (06:08→22:00)
[2018-09-07] MEDS: clonazePAM 2 MG TABLET PO SCH ×3 (06:09→20:56)
[2018-09-07] MEDS: FERROUS SO4 325 MG TABLET (FP) PO SCH ×3 (06:09→22:38)
[2018-09-07] MEDS: PHENobarbital 30 MG TABLET PO SCH ×4 (06:10→22:00)
[2018-09-07] MEDS: DOCUSATE SODIUM 100 MG CAPSULE (FP) PO SCH ×3 (06:10→22:39)
[2018-09-07] MEDS ORDERED: PT OWN MED DRAWER 7, Y5N ONE ×4 (06:14→20:30)
[2018-09-07 06:17] LABS: EOS % 3.5 % (0-4.5); HEMATOCRIT 29.8 % (32.4-45.2); LYMPH % 42.6 % (8-40); MCH 25.7 pg (25.7-33.7); MCHC 33.5 g/dl (32.0-36.0); MEAN CELL VOLUME 76.6 fl (80-96); MEAN PLT VOLUME 7.9 fl (7.5-11.1); MONO % 11.8 % (3.8-10.2); NEUT % 41.1 % (42.8-82.8); PLATELET COUNT 231 K/MM3 (134-434); RBC 3.89 M/mm3 (3.60-5.2); RDW 19.9 % (11.6-15.6); WHITE BLOOD COUNT 5.4 K/mm3 (4.0-10.0)
[2018-09-07 07:06] LABS: ALBUMIN 3.2 g/dl (3.4-5.0); ALK PHOS 55 U/L (45-117); ANION GAP 6 MMOL/L (8-16); BILIRUBIN,TOTAL 0.2 mg/dL (0.2-1); BLOOD UREA NITROGEN 20 mg/dL (7-18); CALCIUM 8.8 mg/dL (8.5-10.1); CHLORIDE 101 mmol/L (98-107); CO2 29 mmol/L (21-32); CREATININE 1.3 mg/dL (0.55-1.3); GLUCOSE,RANDOM 88 mg/dL (74-106); MAGNESIUM 2.2 mg/dL (1.8-2.4); POTASSIUM 4.1 mmol/L (3.5-5.1); SGOT/AST 12 U/L (15-37); SGPT/ALT 15 U/L (13-61); SODIUM 136 mmol/L (136-145); TOT PROT 6.7 g/dl (6.4-8.2)
[2018-09-07] MEDS: BUPRENORPHINE/NALOXONE 2 MG/0.5 MG FILM PACKET SL SCH ×2 (09:31→22:44)
[2018-09-07] MEDS: levETIRAcetam 500 MG/5 ML INJECTION VIAL IVPB SCH ×2 (09:31→22:39)
[2018-09-07] MEDS: BACLOFEN 10 MG TABLET (FP) PO SCH ×2 (09:40→22:00)
[2018-09-07] MEDS: NICOTINE 21 MG/24 HOURS TOPICAL PATCH TD SCH (09:41)
[2018-09-07] MEDS: FLUoxetine HCL 20 MG CAPSULE (FP) PO SCH (09:43)
[2018-09-07] MEDS: Lacosamide 50 MG/5 ML ORAL SOLUTION UNIT CUPS PO SCH ×2 (09:43→22:44)
[2018-09-07] MEDS: PANTOPRAZOLE 40 MG TABLET (FP) PO SCH (09:45)
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
[2018-09-07] MEDS ORDERED: LORazepam 2 MG/ML SDV VIAL IVPUSH ONE (13:15)
[2018-09-07] MEDS: LORazepam 2 MG/ML SDV VIAL IVPUSH PRN ×2 (14:55→22:31)
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
[2018-09-07] MEDS: ACETAMINOPHEN/CAFFEINE/BUTALBITAL 1 TAB PO PRN (16:46)
[2018-09-07 17:29] LABS: ARTERIAL BLOOD GAS BASE EXCESS 2.6 meq/l (-2-2); ARTERIAL BLOOD GAS PCO2 36.6 mmHg (35-45); ARTERIAL BLOOD GAS pH 7.46 (7.35-7.45)
[2018-09-07 17:30] LABS: ALLENS TEST POSITIVE
[2018-09-07 17:37] LABS: ARTERIAL BLD GAS O2 SATURATION 99.7 % (90-98.9)
--- NOTE | 2018-09-07 18:57 | HOSP ---
Subjective - Review of Symptoms General: Yes: Fatigue Physical Examination Vital Signs: Vital Signs Temperature 98.7 F 09/07/18 01:19 Pulse Rate 73 09/07/18 04:39 Respiratory Rate 17 09/07/18 04:39 Blood Pressure 116/58 L 09/07/18 04:39 O2 Sat by Pulse Oximetry (%) 100 09/06/18 21:00 Constitutional: Yes: Well Nourished Eyes: Yes: WNL Cardiovascular: Yes: Tachycardia Respiratory: Yes: Regular Gastrointestinal: Yes: Normal Bowel Sounds, Soft Labs: CBC, BMP 09/07/18 05:30 09/07/18 05:30 Hospitalist Encounter Assessment: Called to see patient as she wanted to leave AMA Risk of leaving AMA such as sudden cardiac arrest, seizures,. etc discussed with patient. She is not willing to take the risk and decided to stay If patient decides later to leave AMA, she has the capacity to make her own medical decisions and I have discussed risks of leaving AMA in great detail and she understands.
[2018-09-07] MEDS ORDERED: SODIUM CHLORIDE 1,000 ML IV STA (19:40)
[2018-09-07] MEDS: NICOTINE POLACRILEX 2 MG GUM BUC PRN (20:41)
[2018-09-07] MEDS: QUEtiapine FUMARATE 100 MG TABLET (FP) PO SCH (22:00)
[2018-09-07] MEDS: ENOXAPARIN NA (PORCINE) 40 MG/0.4 ML DISP.SYRIN SQ SCH (22:38)
[2018-09-07] MEDS: THIAMINE HCL 100 MG TABLET (FP) PO SCH (22:39)
[2018-09-07] MEDS: LIDOCAINE PATCH REMOVAL MC SCH (22:39)
[2018-09-08] MEDS: ACETAMINOPHEN 325 MG TABLET (FP) PO SCH ×8 (02:06→21:00)
[2018-09-08] MEDS: DOCUSATE SODIUM 100 MG CAPSULE (FP) PO SCH ×3 (05:49→21:01)
[2018-09-08] MEDS: clonazePAM 2 MG TABLET PO SCH ×3 (05:49→20:08)
[2018-09-08] MEDS: FERROUS SO4 325 MG TABLET (FP) PO SCH ×4 (05:49→21:01)
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
[2018-09-08] MEDS: BACLOFEN 10 MG TABLET (FP) PO SCH ×2 (10:30→21:01)
[2018-09-08] MEDS: Lacosamide 50 MG/5 ML ORAL SOLUTION UNIT CUPS PO SCH ×2 (10:30→23:30)
[2018-09-08] MEDS: BUPRENORPHINE/NALOXONE 2 MG/0.5 MG FILM PACKET SL SCH ×2 (10:30→21:01)
[2018-09-08] MEDS: FLUoxetine HCL 20 MG CAPSULE (FP) PO SCH (10:30)
[2018-09-08] MEDS ORDERED: PT OWN MED DRAWER 7, Y5N ONE ×7 (10:36→21:10)
[2018-09-08] MEDS: ENOXAPARIN NA (PORCINE) 40 MG/0.4 ML DISP.SYRIN SQ SCH (11:16)
[2018-09-08] MEDS: PANTOPRAZOLE 40 MG TABLET (FP) PO SCH (11:16)
[2018-09-08] MEDS: PHENobarbital 30 MG TABLET PO SCH ×4 (11:16→21:01)
[2018-09-08] MEDS: NICOTINE 21 MG/24 HOURS TOPICAL PATCH TD SCH (11:16)
[2018-09-08] MEDS: MAGNESIUM CITRATE 300 ML BOTTLE PO SCH (12:30)
[2018-09-08] MEDS: levETIRAcetam 500 MG/5 ML INJECTION VIAL IVPB SCH ×2 (13:00→21:02)
[2018-09-08] MEDS: ACETAMINOPHEN/CAFFEINE/BUTALBITAL 1 TAB PO PRN (14:11)
[2018-09-08] MEDS ORDERED: POLYETHYLENE GLYCOL 3350 119 GM BTL PO ONE (15:30)
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
[2018-09-08] MEDS ORDERED: ONDANSETRON 4 MG/2 ML VIAL ONE (18:48)
[2018-09-08] MEDS: NICOTINE POLACRILEX 2 MG GUM BUC PRN (20:08)
[2018-09-08] MEDS: QUEtiapine FUMARATE 100 MG TABLET (FP) PO SCH (21:00)
[2018-09-08] MEDS: THIAMINE HCL 100 MG TABLET (FP) PO SCH (21:00)
[2018-09-08] MEDS: LIDOCAINE PATCH REMOVAL MC SCH (21:02)
[2018-09-09] MEDS: ACETAMINOPHEN 325 MG TABLET (FP) PO SCH ×4 (02:00→14:13)
[2018-09-09] MEDS ORDERED: SODIUM CHLORIDE 500 ML IV STA (02:34)
[2018-09-09] MEDS ORDERED: PT OWN MED DRAWER 7, Y5N ONE (04:19)
[2018-09-09] MEDS: clonazePAM 2 MG TABLET PO SCH ×2 (05:00→12:15)
[2018-09-09] MEDS: NICOTINE POLACRILEX 2 MG GUM BUC PRN ×2 (05:35→11:11)
[2018-09-09] MEDS: DOCUSATE SODIUM 100 MG CAPSULE (FP) PO SCH ×2 (05:36→14:13)
[2018-09-09] MEDS: FERROUS SO4 325 MG TABLET (FP) PO SCH ×2 (05:37→14:13)
[2018-09-09 07:35] LABS: BASO % 0.7 % (0-2.0); EOS % 3.2 % (0-4.5); HEMATOCRIT 27.4 % (32.4-45.2); HEMOGLOBIN 9.2 GM/dL (10.7-15.3); LYMPH % 32.5 % (8-40); MCHC 33.7 g/dl (32.0-36.0); MEAN CELL VOLUME 77.2 fl (80-96); MONO % 13.7 % (3.8-10.2); NEUT % 49.9 % (42.8-82.8); PLATELET COUNT 183 K/MM3 (134-434); RBC 3.55 M/mm3 (3.60-5.2); RDW 20.5 % (11.6-15.6); WHITE BLOOD COUNT 5.3 K/mm3 (4.0-10.0)
[2018-09-09 08:17] LABS: ALBUMIN 3.2 g/dl (3.4-5.0); ALK PHOS 49 U/L (45-117); ANION GAP 7 MMOL/L (8-16); BILIRUBIN,TOTAL 0.2 mg/dL (0.2-1); BLOOD UREA NITROGEN 13 mg/dL (7-18); CALCIUM 8.2 mg/dL (8.5-10.1); CHLORIDE 105 mmol/L (98-107); CO2 26 mmol/L (21-32); CREATININE 0.9 mg/dL (0.55-1.3); GLUCOSE,RANDOM 84 mg/dL (74-106); MAGNESIUM 1.8 mg/dL (1.8-2.4); SGOT/AST 8 U/L (15-37); SGPT/ALT 12 U/L (13-61); SODIUM 139 mmol/L (136-145); TOT PROT 6.9 g/dl (6.4-8.2)
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
[2018-09-09] MEDS: levETIRAcetam 500 MG/5 ML INJECTION VIAL IVPB SCH (10:12)
[2018-09-09] MEDS: ENOXAPARIN NA (PORCINE) 40 MG/0.4 ML DISP.SYRIN SQ SCH (10:13)
[2018-09-09] MEDS: NICOTINE 21 MG/24 HOURS TOPICAL PATCH TD SCH (10:13)
[2018-09-09] MEDS: BUPRENORPHINE/NALOXONE 2 MG/0.5 MG FILM PACKET SL SCH (10:14)
[2018-09-09] MEDS: BACLOFEN 10 MG TABLET (FP) PO SCH (10:15)
[2018-09-09] MEDS: PHENobarbital 30 MG TABLET PO SCH ×2 (10:16→14:13)
[2018-09-09] MEDS: PANTOPRAZOLE 40 MG TABLET (FP) PO SCH (10:17)
[2018-09-09] MEDS: FLUoxetine HCL 20 MG CAPSULE (FP) PO SCH (10:17)
[2018-09-09] MEDS: ACETAMINOPHEN/CAFFEINE/BUTALBITAL 1 TAB PO PRN (10:46)
[2018-09-09] MEDS: Lacosamide 50 MG/5 ML ORAL SOLUTION UNIT CUPS PO SCH (10:47)
[2018-09-09 11:32] LABS: ANISOCYTOSIS 2+; MACROCYTOSIS 0; OVALOCYTE 1+; PLATELET ESTIMATE NORMAL; TEAR DROP CELLS 1+
--- NOTE | 2018-09-09 15:49 | CONSULT ---
Consult Detox [facility] - Alcohol/Substance Use Hx Alcohol Use: No - Past Medical History ...LMP: 08/17/18 ...: No Assessment Plan - Plan Plan: Patient is on maintenance suboxone, 2 mg films, 4 mg am and [address] Hodges contacted me about this patient who she was consulted on. Dr. Hodges advised me that her controlled substance token is not functional so she asked me to prescribe suboxone for this patient. I was advised that the patient needs enough medication to carry her through her appointment with her psychiatrist who manages her suboxone on Wednesday, September 14. I will write for 15 x 2 mg films, a 5 day supply.
--- NOTE | 2018-09-09 16:38 | DS ---
Physical Exam: SUBJECTIVE: Patient seen and examined OBJECTIVE: Vital Signs Period Temp Pulse Resp BP Sys/Bowman Pulse Ox Last 24 Hr 98 F-98.3 F 73-79 12-16 91-120/60-72 100-100 PHYSICAL EXAM GENERAL: The patient is awake, alert, and fully oriented, in no acute distress. HEAD: Normal with no signs of trauma. EYES: PERRL, extraocular movements intact, sclera anicteric, conjunctiva clear. ENT: Ears normal, nares patent, oropharynx clear without exudates, moist mucous membranes. NECK: Trachea midline, full range of motion, supple. LUNGS: Breath sounds equal, clear to auscultation bilaterally, no wheezes, no crackles, no accessory muscle use. HEART: Regular rate and rhythm, S1, S2 without murmur, rub or gallop. ABDOMEN: Soft, nontender, nondistended, normoactive bowel sounds, no guarding, no rebound, no hepatosplenomegaly, no masses. EXTREMITIES: 2+ pulses, warm, well-perfused, no edema. NEUROLOGICAL: Cranial nerves II through XII grossly intact. Normal speech, gait not observed. PSYCH: Normal mood, normal affect. SKIN: Warm, dry, normal turgor, no rashes or lesions noted. LABS Laboratory Results - last 24 hr 09/06/18 09/06/18 09/09/18 20:15 20:15 07:10 WBC 5.3 RBC 3.55 L Hgb 9.2 L Hct 27.4 L MCV 77.2 L MCH 26.0 MCHC 33.7 RDW 20.5 H Plt Count 183 D MPV 8.0 Absolute Neuts (auto) 2.7 Neutrophils % 49.9 D Lymphocytes % 32.5 D Monocytes % 13.7 H Eosinophils % 3.2 Basophils % 0.7 Nucleated RBC % 0 Hypochromia 0 Platelet Estimate Normal Platelet Comment Present Polychromasia 2+ Poikilocytosis 1+ Basophilic Stippling 1+ Anisocytosis 2+ Microcytosis 2+ Macrocytosis 0 Tear Drop Cells 1+ Ovalocytes 1+ Acanthocytes (Spur) 1+ Sodium Potassium Chloride Carbon Dioxide Anion Gap BUN Creatinine Creat Clearance w eGFR Random Glucose Lactic Acid Calcium Magnesium Total Bilirubin AST ALT Alkaline Phosphatase Total Protein Albumin Barbital Cancelled Free/Total Phenytoin None detected 09/09/18 09/09/18 07:10 07:10 WBC RBC Hgb Hct MCV MCH MCHC RDW Plt Count MPV Absolute Neuts (auto) Neutrophils % Lymphocytes % Monocytes % Eosinophils % Basophils % Nucleated RBC % Hypochromia Platelet Estimate Platelet Comment Polychromasia Poikilocytosis Basophilic Stippling Anisocytosis Microcytosis Macrocytosis Tear Drop Cells Ovalocytes Acanthocytes (Spur) Sodium 139 Potassium 4.0 Chloride 105 Carbon Dioxide 26 Anion Gap 7 L BUN 13 Creatinine 0.9 Creat Clearance w eGFR > 60 Random Glucose 84 Lactic Acid 1.2 Calcium 8.2 L Magnesium 1.8 Total Bilirubin 0.2 AST 8 L ALT 12 L Alkaline Phosphatase 49 Total Protein 6.9 Albumin 3.2 L Barbital Free/Total Phenytoin HOSPITAL COURSE: Date of Admission:09/04/18 Date of Discharge: 09/09/18 Discharge Summary Reason For Visit: OPIOID DEPENDENCE WITH WITHDRAWAL SEIZURE DISORDER Current Active Problems Cellulitis of right upper arm (Acute) Sedative, hypnotic or anxiolytic dependence with withdrawal, uncomplicated ( Acute) Seizure (Acute) Cannabis dependence, uncomplicated (Chronic) Cocaine dependence, uncomplicated (Chronic) Condition: Improved - Instructions Diet, Activity, Other Instructions: Mrs Garcia: You will be discharge home today without outpatient follow up with your Psychiatrist Michelle Hinojosa MD. You have an appointment with in this Wednesday. We have called enough medications for you until you are able to see him. All medications have been called into [facility]. Please present your insurance card with you, as they may be a co-payment required. All your medications including Suboxone have been called into [facility] in [place]. You will have enough medications until you see your psychiatrist. Please call me with any questions on concerns that you may have. NEW SEIZURES MEDICATION LIST: 1. VIMPAT 200MG TWICE A DAY AT 8AM AND 8PM 2. KEPPRA 1500MG AT 8AM AND 8PM 3. KLONOPIN 2MG AT 6AM 2PM AND 6PM - 3 times per day 4. PHENOBARTIAL 30MG FOUR TIMES PER DAY 6AM 2PM 6PM 2AM Please seek help/assistance with your Psychiatrist that you follow closely. Thank you for allowing us to care for you [facility] @ [facility] [phone] Referrals: Christi Hodges DO [Staff Physician] - Disposition: HOME - Home Medications Comprehensive Discharge Medication List: Ambulatory Orders Acetaminophen [Tylenol] 650 mg PO Q4H 09/04/18 Albuterol Sulfate Inhaler - [Ventolin HFA Inhaler -] 2 inh PO Q4H PRN 09/04/18 Baclofen [Lioresal -] 10 mg PO BID 09/04/18 Docusate Sodium [Colace] 100 mg PO TID 09/04/18 Ferrous Sulfate [Feosol] 325 mg PO TID 09/04/18 Fluoxetine HCl [Prozac] 40 mg PO DAILY 09/04/18 Nicotine Patch [Nicoderm Patch -] 1 patch TD DAILY 09/04/18 Pantoprazole Sodium [Protonix] 40 mg PO DAILY 09/04/18 Quetiapine Fumarate [Seroquel] 100 mg PO HS 09/04/18 Thiamine Mononitrate [Vitamin B-1] 100 mg PO HS 09/04/18 Trimethobenzamide Injection [Tigan Injection -] 300 mg IM Q12H PRN 09/04/18 Buprenorphine/Naloxone [Suboxone 2Mg/0.5MG Sl Film -] 2 each SL DAILY #8 film MDD 4 09/09/18 Buprenorphine/Naloxone [Suboxone 2Mg/0.5MG Sl Film -] 3 combo SL DAILY 5 Days # 15 packet MDD 3 09/09/18 Lacosamide [Vimpat] 200 tab PO DAILY #60 tablet MDD 2 09/09/18 Phenobarbital - 30 mg PO QID #120 tablet MDD 4 09/09/18 clonazePAM [KlonoPIN -] 2 mg PO Q8H #15 tablet MDD 3 09/09/18 levETIRAcetam [Keppra -] 1,500 mg PO BID #180 tablet 09/09/18 - Discharge Referral Referred to [facility] Med [facility] No
[2018-09-09 17:32] VITALS: TEMP 98.4
[2018-09-09 17:33] VITALS: BP 126/61; PULSE 85
== END 2018-09-09 17:38 | disposition home or self-care (01) | DRG 53 ==
LOC: JER 11:35 → JERBED 13:52 → J2W 21:35
PROVIDERS: ADMIT Internal Medicine; ATTEND Nurse Practitioner Family
PROC: HZ2ZZZZ Detoxification Services for Substance Abuse Treatment (ICD-10-PCS; principal; 2018-09-06)
DX: G40.909 Epilepsy, unspecified, not intractable, without status epilepticus (principal); F19.90 Other psychoactive substance use, unspecified, uncomplicated; F11.23 Opioid dependence with withdrawal; F13.230 Sedative, hypnotic or anxiolytic dependence with withdrawal, uncomplicated; J45.909 Unspecified asthma, uncomplicated; F12.20 Cannabis dependence, uncomplicated; F14.20 Cocaine dependence, uncomplicated; F17.210 Nicotine dependence, cigarettes, uncomplicated; I48.91 Unspecified atrial fibrillation; F43.10 Post-traumatic stress disorder, unspecified; K21.9 Gastro-esophageal reflux disease without esophagitis; D50.9 Iron deficiency anemia, unspecified; F41.8 Other specified anxiety disorders; Z86.718 Personal history of other venous thrombosis and embolism; Z85.43 Personal history of malignant neoplasm of ovary; Z87.820 Personal history of traumatic brain injury
CPT/HCPCS: 36415; 36600; 70450-TC; 71045-TC-FY; 80048; 80053; 80177; 80185; 80186; 80307; 81003; 82803; 83605; 83735; 84100; 84703; 85025; 85027; 93005; 93010; 95816; 99284-25; G0480; J0131; J0475; J7030

== ENCOUNTER 2022-04-21 19:36 | Inpatient (IN) | payer OTHER ==
[2022-04-21 20:03] VITALS: BMI 15.7
[2022-04-21] MEDS ORDERED: BENZOCAINE/MENTHOL (CHLORASEPTIC ) LOZENGE MM PRN (22:46)
[2022-04-21] MEDS ORDERED: ACETAMINOPHEN 325 MG TABLET (FP) PO PRN ×2 (22:46)
[2022-04-21] MEDS ORDERED: MAGNESIUM HYDROX 2400MG/30ML ORAL SUSPENSION 30 ML CUP PO PRN (22:46)
[2022-04-21] MEDS ORDERED: MAGNESIUM CITRATE 300 ML BOTTLE PO PRN (22:46)
[2022-04-21] MEDS ORDERED: DICYCLOMINE HCL 10 MG CAPSULE PO PRN (22:46)
[2022-04-21] MEDS ORDERED: NALOXONE HCL (KLOXXADO) 8 MG SPRAY NS PRN (22:46)
[2022-04-21] MEDS ORDERED: MAG HYDROX/AL HYDROX/SIMETH 30 ML UNIT-DOSE CUP PO PRN (22:46)
[2022-04-21] MEDS ORDERED: LOPERAMIDE HCL 2 MG CAPSULE PO PRN (22:46)
[2022-04-21] MEDS ORDERED: NICOTINE POLACRILEX 2 MG GUM BUC PRN (22:46)
[2022-04-21] MEDS ORDERED: hydrOXYzine PAMOATE 25 MG CAPSULE (FP) PO PRN (22:46)
[2022-04-21] MEDS ORDERED: METHOCARBAMOL 500 MG TABLET PO PRN (22:46)
[2022-04-22] MEDS ORDERED: ONDANSETRON *ODT* 4 MG TABLET ONE (05:33)
[2022-04-22] MEDS ORDERED: diazePAM 5 MG TABLET PO PRN ×2 (05:33→13:47)
[2022-04-22] MEDS ORDERED: methaDONE HCL 10 MG TABLET (FOR DETOX USE ONLY) PO ONE (05:33)
[2022-04-22] MEDS: ONDANSETRON *ODT* 4 MG TABLET SL PRN ×2 (05:34→10:40)
[2022-04-22] MEDS ORDERED: cloNIDine HCL 0.1 MG TABLET PO PRN (05:54)
[2022-04-22] MEDS: diazePAM 5 MG TABLET PO SCH ×3 (06:08→17:26)
[2022-04-22] MEDS ORDERED: PRENATAL VITAMINS W/ FOLIC ACID TABLET (FP) PO SCH (10:00)
[2022-04-22] MEDS ORDERED: NICOTINE 21 MG/24 HOURS TOPICAL PATCH TD SCH (10:00)
[2022-04-22] MEDS ORDERED: ALBUTEROL SO4 HFA INHALER IH PRN (10:14)
[2022-04-22 14:16] LABS: HEMATOCRIT 35.3 % (32.4-45.2); HEMOGLOBIN 11.7 GM/dL (10.7-15.3); MCH 25.7 pg (25.7-33.7); MCHC 33.2 g/dl (32.0-36.0); MEAN CELL VOLUME 77.2 fl (80-96); MEAN PLT VOLUME 7.3 fl (7.5-11.1); PLATELET COUNT 285 10^3/uL (134-434); RBC 4.57 M/mm3 (3.60-5.2); RDW 15.1 % (11.6-15.6); WHITE BLOOD COUNT 4.5 K/mm3 (4.0-10.0)
[2022-04-22 14:20] LABS: BLOOD UREA NITROGEN 14.6 mg/dL (7-18); CALCIUM 8.9 mg/dL (8.5-10.1)
[2022-04-22 14:25] LABS: BILIRUBIN,TOTAL 0.2 mg/dL (0.2-1); TOT PROT 7.7 g/dl (6.4-8.2)
[2022-04-22 19:05] VITALS: BP 111/77; PULSE 92; RESP 16; TEMP 97.3
[2022-04-22] MEDS ORDERED: THIAMINE HCL 100 MG TABLET (FP) PO SCH (22:00)
[2022-04-22] MEDS ORDERED: MELATONIN 5 MG TABLETS PO SCH (22:00)
[2022-04-23] MEDS ORDERED: diazePAM 5 MG TABLET PO SCH (06:00)
[2022-04-24] MEDS ORDERED: diazePAM 5 MG TABLET PO SCH (06:00)
[2022-04-24] MEDS ORDERED: methaDONE HCL 10 MG TABLET (FOR DETOX USE ONLY) PO ONE (10:00)
[2022-04-25] MEDS ORDERED: diazePAM 5 MG TABLET PO ONE (06:00)
[2022-04-26] MEDS ORDERED: methaDONE HCL 10 MG TABLET (FOR DETOX USE ONLY) PO ONE (10:00)
== END 2022-04-22 18:35 | disposition left against medical advice (07) | DRG 770 ==
LOC: YASAS 19:36 → UNDOADMIN 04-22 05:16 → Y6N 04-22 05:16 → UNDODISIN 04-22 18:35
PROVIDERS: ADMIT Surgery; ATTEND Allergy & Immunology
PROC: HZ2ZZZZ Detoxification Services for Substance Abuse Treatment (ICD-10-PCS; principal; 2022-04-22)
DX: F11.23 Opioid dependence with withdrawal (principal); F10.230 Alcohol dependence with withdrawal, uncomplicated; F14.20 Cocaine dependence, uncomplicated; F12.20 Cannabis dependence, uncomplicated; F17.210 Nicotine dependence, cigarettes, uncomplicated; F41.8 Other specified anxiety disorders; F32.A Depression, unspecified; F43.10 Post-traumatic stress disorder, unspecified; F60.3 Borderline personality disorder; I82.491 Acute embolism and thrombosis of other specified deep vein of right lower extremity; G40.909 Epilepsy, unspecified, not intractable, without status epilepticus; D50.9 Iron deficiency anemia, unspecified; I48.91 Unspecified atrial fibrillation; J45.20 Mild intermittent asthma, uncomplicated; Z85.43 Personal history of malignant neoplasm of ovary; Z87.820 Personal history of traumatic brain injury; Z88.0 Allergy status to penicillin; Z88.6 Allergy status to analgesic agent
CPT/HCPCS: 36415; 80053; 80177; 81025; 85027; 86780; 87811; 93005; 93010; 93971-TC; 99281-25; C9803-CS; Q0162; U0003; U0005